=== PATIENT | male | born 1965 | race Two or more races ===

== ENCOUNTER 2016-05-16 20:52 | Emergency (ER) | payer MEDICAID ==
[~2016-05-16] VITALS: Ht 157.5 cm; Wt 108.9 kg
[~2016-05-16 20:52] MED LIST: ALPRAZOLAM0.25 MG ORAL; ATIVAN1 MG ORAL; FISH OIL CAP1000 MG ORAL; FOLIC ACID1 MG ORAL; IBUPROFEN600 MG ORAL; NEURONTIN300 MG ORAL; NKM; POTASSIUM CHLO20 ME3 PO; PROMETHAZINE-C118 M1 ORAL; PROTONIX40 MG ORAL; TYLENOL650 MG/20. ORAL; VITAMIN B-1100 MG ORAL; ZETIA10 MG ORAL
[2016-05-16] MEDS ORDERED: ATIVAN0.5 MG ORAL (21:52)
[2016-05-16 21:57] VITALS: BP 143/89
[2016-05-16 21:58] VITALS: BP 160/93
[2016-05-16] MEDS ORDERED: LORazepam 0.5mg tab ORAL ONE (22:00)
--- NOTE | 2016-05-16 23:07 | Emergency Room Report ---
History of Present Illness General Chief Complaint: General Complaint Source: Patient Present Illness HPI 51 YOM presents with feeling like episode at home while eating dinner of "wall is closing in, I'm going to , feeling very scared." Has happened before. Has not seen psychiatry. Denies associated fever/chills, chest pain, SOB, headache, dizziness, abd pain, urinary complaints. Per EMR, patient has history of multiple visits of anxiety to this ED. Per EMR , symptoms of chest pain, dizziness, headache have occurred with episodes of anxiety. He denies drug use, ETOH abuse. Denies any PMHx or other medications. Doesnt have anything at home for anxiety. Denies being stressed about specific things. Allergies: Coded Allergies: No Known Allergies (Verified , 04/22/08) Patient History Past Medical History: other - anxiety Past Surgical History: none Pertinent Family History: none Social History: Denies: alcohol use, drug use, smoking Immunizations: UTD Reviewed Nursing Documentation: PMH: Agreed, PSxH: Agreed Nursing Documentation-PMH Past Medical History: No Stated History Hx Cardiac Problems: No Hx Diabetes: No Hx Gastrointestinal Problems: No Hx Neurological Problems: No Review of Systems All Other Systems: negative except mentioned in HPI Physical Exam Vital Signs Date Time Temp Pulse Resp B/P Pulse Ox O2 Delivery O2 Flow Rate FiO2 05/16/16 21:24 98.1 101 16 160/93 100 Room Air Sp02 EP Interpretation: reviewed, normal General Appearance: normal inspection, well appearing, no apparent distress, alert, GCS 15, non-toxic Head: normocephalic, atraumatic Eyes: bilateral eye EOMI, bilateral eye PERRL ENT: normal ENT inspection, hearing grossly normal, normal voice Neck: normal inspection, full range of motion, supple, no bony tend Respiratory: normal inspection, lungs clear, normal breath sounds, no respiratory distress, no retraction, no wheezing Cardiovascular #1: regular rate, rhythm, no edema Gastrointestinal: normal inspection, normal bowel sounds, non tender, soft, no guarding, no hernia Genitourinary: no CVA tenderness Musculoskeletal: normal inspection, back normal, normal range of motion, Osmany' s Sign negative Neurologic: normal inspection, alert, oriented x3, responsive, singer back tender III-XII nml as tested, speech normal Psychiatric: normal inspection, judgement/insight normal, memory normal, mood/ affect normal, no suicidal/homicidal ideation, no delusions, anxious Skin: normal inspection, normal color, no rash Medical Decision Making Diagnostic Impression: Primary Impression: Panic attack ER Course 51 YOM with likely panic attack. VSS. Afebrile. Feels much better since leaving the house. Mildly anxious now. No SI, HI, AVH PO ativan given with improvement in symptoms Patient has had negative workup in the past for chest pain assoc with anxiety, including in Jan 2016 Low suspicion for ACS or other bacterial/surgical cause of symptoms today Likely anxiety given HPI Rx ativan DC home Recommended Psych followup Last Vital Signs Date Time Temp Pulse Resp B/P Pulse Ox O2 Delivery O2 Flow Rate FiO2 05/16/16 21:58 98.1 16 160/93 100 Room Air 05/16/16 21:57 87 Status: improved Disposition: HOME, SELF-CARE Condition: Improved Scripts Lorazepam* (ATIVAN*) 0.5 Mg Tablet 0.5 MG ORAL ONCE for 7 Days, #10 TAB Prov: JENNIFER BELLO M.D. 05/16/16 Referrals: NOT CHOSEN IPA/,REFERRING (PCP) Patient Instructions: Panic Attacks, [id number] Additional Instructions: - Call tomorrow the mental health number on back of your insurance card for a psychiatry appointment - Take Ativan once per day as needed for panic attacks - Return to ER for worsening dizziness, chest pain, headache or other symptoms JENNIFER BELLO M.D. May 16, 2016 23:07
== END 2016-05-16 22:00 | disposition home or self-care (01) ==
LOC: EMR 21:57
DX: F41.0 Panic disorder [episodic paroxysmal anxiety] (principal); F41.9 Anxiety disorder, unspecified
CPT/HCPCS: 99283

== ENCOUNTER 2016-06-30 14:14 | Emergency (ER) | payer MEDICAID ==
[~2016-06-30] VITALS: Ht 154.9 cm; Wt 108.9 kg
[~2016-06-30 14:14] MED LIST changes: +ATIVAN0.5 MG ORAL
[2016-06-30 14:29] VITALS: BP 144/89
[2016-06-30] MEDS ORDERED: Meclizine 25mg tab ORAL STA (14:34)
--- NOTE | 2016-06-30 14:34 | Emergency Room Report ---
History of Present Illness General Chief Complaint: Dizziness Source: Patient Present Illness HPI 51YOM with 1 week of dizziness - worse with change of position - but no unsteadiness when walking, no falling to one side, no loss of balance. Assoc now with 3 days posterior headache. Denies assoc fever/chills, nausea/vomiting , neck pain/stiffness. Per EMR, multiple visits here for similar type of complaint - known diagnosis of generalized anxiety disorder by psychiatry on previous admission. +DM. Previous admission for DKA. not taking medication for DM currently. Allergies: Coded Allergies: No Known Allergies (Verified , 04/22/08) Patient History Past Medical History: DM, other - anxiety Past Surgical History: none Pertinent Family History: none Social History: Reports: alcohol use Immunizations: UTD Reviewed Nursing Documentation: PMH: Agreed, PSxH: Agreed Nursing Documentation-PMH Past Medical History: No History, Except For Hx Diabetes: No Hx Gastrointestinal Problems: No Hx Neurological Problems: No Review of Systems All Other Systems: negative except mentioned in HPI Physical Exam Vital Signs Date Time Temp Pulse Resp B/P Pulse Ox O2 Delivery O2 Flow Rate FiO2 06/30/16 14:20 98.2 75 16 144/89 100 Room Air Sp02 EP Interpretation: reviewed, abnormal General Appearance: normal inspection, well appearing, no apparent distress, alert, GCS 15, non-toxic Head: normocephalic, atraumatic Eyes: bilateral eye EOMI, bilateral eye PERRL ENT: normal ENT inspection, hearing grossly normal, normal voice Neck: normal inspection, full range of motion, supple, no bony tend Respiratory: normal inspection, lungs clear, normal breath sounds, no respiratory distress, no retraction, no wheezing Cardiovascular #1: regular rate, rhythm, no edema Gastrointestinal: normal inspection, normal bowel sounds, non tender, soft, no guarding, no hernia Genitourinary: no CVA tenderness Musculoskeletal: normal inspection, back normal, normal range of motion, Osmany' s Sign negative Neurologic: normal inspection, alert, oriented x3, responsive, churn tender III-XII nml as tested, motor strength/tone normal, speech normal Psychiatric: normal inspection, judgement/insight normal, mood/affect normal Skin: normal inspection Lymphatic: normal inspection Medical Decision Making Diagnostic Impression: Primary Impression: Dizziness ER Course Dizziness - Labs: No leuks. H&H stable. Mild CK elevation but no associated RUBI. No other significant metabolic abnormality - Unlikely ACS given duration of 1 week, no CAD risk factors, EKG is NSR, no ischemia. Troponin 0. No chest pain, SOB - CT head unchanged from previous. No mass, ICH. I doubt posterior CVA given no loss of balance, ataxia or other focal deficits - Possibly BPPV. Patient does NOT have a PMD nor has seen an ENT. He improved on meclizine and IVF here. Will Rx Meclizine with recommended ENT referral - I am a little concern for benzo-seeking behavior. I did check on [facility] and 3x rx for benzos, all from here, including me from previous visit. Will NOT DC with benzos this time EKG Diagnostic Results Rate: normal, other - normal QTc Rhythm: NSR ST Segments: no acute changes ASA given to the pt in ED: No Rhythm Strip Diag. Results EP Interpretation: yes Rate: 77 Rhythm: NSR, no PVC's, no ectopy Last Vital Signs Date Time Temp Pulse Resp B/P Pulse Ox O2 Delivery O2 Flow Rate FiO2 06/30/16 14:29 98.2 16 144/89 100 Room Air 06/30/16 14:20 75 Disposition: HOME, SELF-CARE JENNIFER BELLO M.D. Jun 30, 2016 14:34
[2016-06-30] MEDS ORDERED: LR 1000ml 1,000 ML IV SCH (14:45)
[2016-06-30 14:58] LABS: BASOPHILS % (AUTO) 0.9 % (0.0-2.0); LYMPHOCYTES % (AUTO) 25.8 % (20.0-45.0); MEAN CORPUSCULAR HEMOGLOBIN 28.3 PG (27.0-31.0); MEAN CORPUSCULAR HGB CONC 33.2 G/DL (32.0-36.0); MEAN CORPUSCULAR VOLUME 85 FL (80-99); MEAN PLATELET VOLUME 7.9 FL (6.5-10.1); MONOCYTES % (AUTO) 8.1 % (1.0-10.0); NEUTROPHILS % (AUTO) 64.2 % (45.0-75.0); PLATELET COUNT 189 K/UL (150-450); RED CELL DISTRIBUTION WIDTH 14.9 % (11.6-14.8); WHITE BLOOD COUNT 6.7 K/UL (4.8-10.8)
[2016-06-30 15:15] LABS: TROPONIN I < 0.30 ng/mL (<=0.30)
[2016-06-30 15:18] LABS: ALANINE AMINOTRANSFERASE 21 U/L (3-41); ALBUMIN/GLOBULIN RATIO 1.4 (1.0-2.7); ANION GAP 16 (5-15); ASPARTATE AMINO TRANSFERASE 19 U/L (5-40); CARBON DIOXIDE 24 mEQ/L (20-30); CHLORIDE 96 mEQ/L (98-107); CREATININE 0.8 mg/dL (0.7-1.2); GLOMERULAR FILTRATION RATE > 60 mL/min (>60); HEMOLYSIS 8; POTASSIUM 3.3 mEQ/L (3.4-4.9); SODIUM 136 mEQ/L (135-145); TOTAL PROTEIN 7.2 g/dL (6.6-8.7)
[2016-06-30 15:28] LABS: CKMB 10.7 ng/mL (< 6.7)
[2016-06-30] MEDS ORDERED: MECLIZINE HCL25 MG ORAL (15:51)
[2016-06-30 15:52] VITALS: BP 141/68
[2016-06-30] MEDS ORDERED: Ketorolac 30mg Inj IV ONE (16:00)
[2016-06-30 16:38] LABS: APPEARANCE,URINE CLEAR; KETONES,URINE NEGATIVE (NEGATIVE); LEUKOCYTE ESTERASE ,URINE NEGATIVE (NEGATIVE); NITRITE,URINE NEGATIVE (NEGATIVE); PH,URINE 7 (4.5-8.0); PROTEIN,URINE NEGATIVE (NEGATIVE); UROBILINOGEN,URINE NORMAL MG/DL (0.0-1.0)
--- NOTE | 2016-07-01 10:28 | Diagnostic Imaging Report ---
Indication: Dyspnea Technique: XRAY CHEST 1 V Comparison: 02/11/16 Findings: Cardiomediastinal silhouette is within normal limits. There are subtle increased interstitial markings of the right midlung. There is no consolidation or pleural effusion. Degenerative changes of the spine are noted. Impression: Subtle increased interstitial markings of the right midlung. Findings are acute indeterminate and clinical correlation/followup recommended.
--- NOTE | 2016-07-01 10:30 | Diagnostic Imaging Report ---
Indication: Vertigo and dizziness Technique: Continuous helical CT scanning of the head was performed utilizing automated exposure control without intravenous contrast material. Axial and coronal reconstructions were obtained. Comparison: 11/20/15 CT dose: Total DLP 1446 mGycm; CTDI vol 70.4 mGy Findings: There is no acute intracranial hemorrhage, mass effect or cortical edema. The ventricles, cisterns and sulci are within normal limits. The posterior fossa and fourth ventricle are unremarkable. Sellar and suprasellar regions are grossly unremarkable. There is complete opacification of the left maxillary sinus. Moderate left ethmoid opacification is also noted. No focal lesions of the bony calvarium or soft tissues of the scalp are seen. Impression: No evidence of acute intracranial hemorrhage, mass effect or cortical edema. MRI may be obtained for more sensitive evaluation as clinically indicated. Left ethmoid and maxillary sinus opacification. Sinusitis or polyposis not excluded. Clinical correlation recommended. The CT scanner at [facility] is accredited by the [employer] and the scans are performed using protocols designed to limit radiation exposure to as low as reasonably achievable to attain images of sufficient resolution adequate for diagnostic evaluation.
--- NOTE | 2016-07-04 16:16 | Cardiology Report ---
APPROVED REPORT EKG Measurement Heart [id number] Normal sinus rhythm Normal ECG
== END 2016-06-30 16:00 | disposition home or self-care (01) ==
LOC: EMR 14:56
DX: R42 Dizziness and giddiness (principal); R51 Headache; F41.1 Generalized anxiety disorder; E11.9 Type 2 diabetes mellitus without complications
CPT/HCPCS: 36415; 70450; 71010; 80053; 80300; 81003; 82550; 82553; 84484; 85025; 93005; 96374; 96375; 99284; J1885

== ENCOUNTER 2017-10-15 07:04 | Emergency (ER) | payer MEDICAID ==
[~2017-10-15] VITALS: Ht 157.5 cm; Wt 81.6 kg
[~2017-10-15 07:04] MED LIST changes: +MECLIZINE HCL25 MG ORAL
[2017-10-15 07:24] VITALS: BP 133/75
[2017-10-15] MEDS ORDERED: Meclizine 25mg tab ORAL PRN (08:00)
[2017-10-15] MEDS ORDERED: MECLIZINE HCL25 M1 ORAL (08:09)
--- NOTE | 2017-10-15 08:10 | Emergency Room Report ---
History of Present Illness General Chief Complaint: Generalized Weakness Source: Patient Present Illness HPI Yesterday this patient had positional dizziness, spontaneous/sudden onset, resolved with not moving/lying down/sitting. Improved overnight but recurring again today. He is ok while lying in the gurney but walking into dept. made it worse. There is no history of any head trauma, no fever, no headache, no visual complaint. He has had this once before but resolved and never saw a physician. He denies medical problems and no meds. No trauma, no fever, no shortness of breath, no travel history, no leg swelling, no chest pain, no diaphoresis, no exertional complaints, no nausea, no vomiting, no diarrhea, no abdominal pain. Tolerating po fine, normal urinary output, normal bm. No syncope, LOC, lightheadedness, headache. No recent surgery. CRF: not known to have htn, lipids , no family history, no dm, no tobacco. Allergies: Coded Allergies: No Known Allergies (Verified , 04/22/08) Nursing Documentation-[facility] Past Medical History: No Stated History Hx Diabetes: No Hx Gastrointestinal Problems: No Hx Neurological Problems: No Review of Systems Constitutional: Denies: fever Eye: Denies: acuity changes Respiratory: Denies: cough, shortness of breath Cardiovascular: Denies: chest pain Gastrointestinal: Denies: nausea, vomiting Skin: Denies: rash Neurological: Denies: headache Physical Exam Vital Signs Date Time Temp Pulse Resp B/P (MAP) Pulse Ox O2 Delivery O2 Flow Rate FiO2 10/15/17 07:14 97.8 66 18 133/75 97 Room Air 97.9 General Appearance: well appearing, no apparent distress Head: normocephalic, atraumatic ENT: hearing grossly normal, normal voice Neck: full range of motion, supple Respiratory: no respiratory distress, speaking full sentences Musculoskeletal: no calf tenderness Neurologic: alert, normal gait, other - Barany reproduces symptoms Psychiatric: mood/affect normal Skin: no rash Medical Decision Making Diagnostic Impression: Primary Impression: Vertigo Last Vital Signs Date Time Temp Pulse Resp B/P (MAP) Pulse Ox O2 Delivery O2 Flow Rate FiO2 10/15/17 07:14 97.8 66 18 133/75 97 Room Air 97.9 Scripts Meclizine Hcl (MECLIZINE HCL) 25 Mg Tab.chew 25 MG ORAL THREE TIMES A DAY PRN for for dizziness, #30 TAB Prov: Jean-Claude Porter M.D. 10/15/17 Referrals: NOT CHOSEN IPA/MD,REFERRING (PCP) Patient Instructions: Benign Positional Vertigo Jean-Claude Porter M.D. Oct 15, 2017 08:09
[2017-10-15 08:25] VITALS: BP 133/75
== END 2017-10-15 08:25 | disposition home or self-care (01) ==
LOC: EMR 07:43
DX: R42 Dizziness and giddiness (principal)
CPT/HCPCS: 99283

== ENCOUNTER 2017-10-29 11:04 | Emergency (ER) | payer MEDICAID ==
[~2017-10-29] VITALS: Ht 154.9 cm; Wt 98.4 kg
[~2017-10-29 11:04] MED LIST changes: +MECLIZINE HCL25 M1 ORAL
[2017-10-29 11:16] VITALS: BP 145/86
--- NOTE | 2017-10-29 12:12 | Emergency Room Report ---
History of Present Illness General Chief Complaint: Dizziness Source: Patient Present Illness HPI Patient presents with reports of muscle cramping and aching he reports that he was working outside it was extremely hot he was doing lifting There was an episode where he had a second where he felt that his vision became blurry at this time back to normal Denies any chest pain or short of breath denies any neck pain He does report cramping in his legs and upper arms Denies any vomiting or diarrhea Allergies: Coded Allergies: No Known Allergies (Verified , 10/29/17) Patient History Past Medical History: see triage record Pertinent Family History: none Reviewed Nursing Documentation: PMH: Agreed; PSxH: Agreed Nursing Documentation-PMH Past Medical History: No History, Except For Hx Diabetes: No Hx Gastrointestinal Problems: No Hx Neurological Problems: No Review of Systems All Other Systems: negative except mentioned in HPI Physical Exam Vital Signs Date Time Temp Pulse Resp B/P (MAP) Pulse Ox O2 Delivery O2 Flow Rate FiO2 10/29/17 11:08 98.3 89 18 145/86 98 Room Air 98.2 Sp02 EP Interpretation: reviewed, normal General Appearance: well appearing, no apparent distress Head: normocephalic, atraumatic Eyes: bilateral eye PERRL, bilateral eye EOMI ENT: hearing grossly normal, normal pharynx, TMs + canals normal, uvula midline Neck: full range of motion, supple, no meningismus, no bony tend Respiratory: lungs clear, normal breath sounds, no rhonchi, no respiratory distress, no retraction, no accessory muscle use Cardiovascular #1: normal peripheral pulses, regular rate, rhythm, no edema, no gallop, no JVD, no murmur Gastrointestinal: normal bowel sounds, non tender, soft, no mass, no organomegaly, non-distended, no guarding, no hernia, no pulsatile mass, no rebound Genitourinary: no CVA tenderness Musculoskeletal: normal inspection Neurologic: oriented x3, responsive, 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, motor strength/ tone normal, sensory intact Psychiatric: mood/affect normal Skin: normal color, no rash, warm/dry, palpation normal Lymphatic: normal inspection, no adenopathy Medical Decision Making Diagnostic Impression: Primary Impression: Dizziness Additional Impression: Rhabdomyolysis ER Course Multiple differentials considered patient appears to have had significant dehydration IV hydration and started blood work also reveals mild early rhabdomyolysis Patient able to urinate taking oral hydration well And at this time is stable for close outpatient follow-up with rest and staying out of the heat Labs Test 10/29/17 11:40 White Blood Count 5.5 K/UL (4.8-10.8) Red Blood Count 5.66 M/UL (4.70-6.10) Hemoglobin 16.4 G/DL (14.2-18.0) Hematocrit 49.7 % (42.0-52.0) Mean Corpuscular Volume 88 FL (80-99) Mean Corpuscular Hemoglobin 29.0 PG (27.0-31.0) Mean Corpuscular Hemoglobin Concent 33.1 G/DL (32.0-36.0) Red Cell Distribution Width 12.3 % (11.6-14.8) Platelet Count 194 K/UL (150-450) Mean Platelet Volume 8.0 FL (6.5-10.1) Neutrophils (%) (Auto) 50.2 % (45.0-75.0) Lymphocytes (%) (Auto) 37.0 % (20.0-45.0) Monocytes (%) (Auto) 9.7 % (1.0-10.0) Eosinophils (%) (Auto) 1.3 % (0.0-3.0) Basophils (%) (Auto) 1.8 % (0.0-2.0) Sodium Level 138 MMOL/L (136-145) Potassium Level 3.7 MMOL/L (3.5-5.1) Chloride Level 101 MMOL/L (98-107) Carbon Dioxide Level 23 MMOL/L (21-32) Anion Gap 14 mmol/L (5-15) Blood Urea Nitrogen 21 mg/dL (7-18) Creatinine 1.1 MG/DL (0.55-1.30) Estimat Glomerular Filtration Rate > 60 mL/min (>60) Glucose Level 119 MG/DL (74-106) Calcium Level 9.3 MG/DL (8.5-10.1) Total Bilirubin 0.5 MG/DL (0.2-1.0) Aspartate Amino Transf (AST/SGOT) 43 U/L (15-37) Alanine Aminotransferase (ALT/SGPT) 57 U/L (12-78) Alkaline Phosphatase 142 U/L (46-116) Total Creatine Kinase 1142 U/L (26-308) Creatine Kinase MB 28.9 NG/ML (0.0-3.6) Creatine Kinase MB Relative Index 2.5 Total Protein 8.7 G/DL (6.4-8.2) Albumin 4.5 G/DL (3.4-5.0) Globulin 4.2 g/dL Albumin/Globulin Ratio 1.1 (1.0-2.7) Last Vital Signs Date Time Temp Pulse Resp B/P (MAP) Pulse Ox O2 Delivery O2 Flow Rate FiO2 10/29/17 11:16 98.2 89 18 145/86 98 Room Air 98.2 Status: improved Disposition: HOME, SELF-CARE Condition: Improved Referrals: NOT CHOSEN IPA/MD,REFERRING (PCP) Additional Instructions: Patient is provided with the discharge instructions notified to follow up with primary doctor in the next 2-3 days otherwise return to the er with any worsening symptoms. Please note that this report is being documented using DRAGON technology. This can lead to erroneous entry secondary to incorrect interpretation by the dictating instrument. Karen Jj DO Oct 29, 2017 12:12
[2017-10-29 12:32] LABS: ANION GAP 14 mmol/L (5-15); BLOOD UREA NITROGEN 21 mg/dL (7-18); CALCIUM 9.3 MG/DL (8.5-10.1); CARBON DIOXIDE 23 MMOL/L (21-32); CHLORIDE 101 MMOL/L (98-107); CREATININE 1.1 MG/DL (0.55-1.30); POTASSIUM 3.7 MMOL/L (3.5-5.1); SODIUM 138 MMOL/L (136-145)
[2017-10-29 12:35] LABS: BASOPHILS % (AUTO) 1.8 % (0.0-2.0); EOSINOPHILS % (AUTO) 1.3 % (0.0-3.0); HEMATOCRIT 49.7 % (42.0-52.0); HEMOGLOBIN 16.4 G/DL (14.2-18.0); MEAN CORPUSCULAR VOLUME 88 FL (80-99); MONOCYTES % (AUTO) 9.7 % (1.0-10.0); NEUTROPHILS % (AUTO) 50.2 % (45.0-75.0); PLATELET COUNT 194 K/UL (150-450); RED BLOOD COUNT 5.66 M/UL (4.70-6.10); RED CELL DISTRIBUTION WIDTH 12.3 % (11.6-14.8); WHITE BLOOD COUNT 5.5 K/UL (4.8-10.8)
[2017-10-29 12:45] LABS: ALANINE AMINOTRANSFERASE 57 U/L (12-78); ALBUMIN 4.5 G/DL (3.4-5.0); ALBUMIN/GLOBULIN RATIO 1.1 (1.0-2.7); ALKALINE PHOSPHATASE 142 U/L (46-116); ASPARTATE AMINO TRANSFERASE 43 U/L (15-37); BILIRUBIN,TOTAL 0.5 MG/DL (0.2-1.0); CKMB 28.9 NG/ML (0.0-3.6); CREATINE KINASE 1142 U/L (26-308)
[2017-10-29 13:13] VITALS: BP 134/80
== END 2017-10-29 13:16 | disposition home or self-care (01) ==
LOC: EMR 11:35
DX: R42 Dizziness and giddiness (principal); M62.82 Rhabdomyolysis
CPT/HCPCS: 36415; 80053; 82550; 82553; 85025; 99283

== ENCOUNTER 2018-07-15 13:02 | Emergency (ER) | payer MEDICAID ==
[~2018-07-15] VITALS: Ht 157.5 cm; Wt 72.6 kg
[2018-07-15 13:18] VITALS: BP 155/89
--- NOTE | 2018-07-15 13:18 | NUR ---
ED Nurse Note: AMBULATED IN TO ER DUE TO DIZZINESS WITH HEAD MOVEMENT X1 MONTH. A/OX4. NO S/S OF DISTRESS. NAUSEA BUT DENIES ANY VOMITTING EPISODES.
[2018-07-15] MEDS ORDERED: Metoclopramide 10mg/2ml Inj IVP ONE (13:30)
[2018-07-15] MEDS ORDERED: Meclizine 25mg tab ORAL ONE (13:30)
[2018-07-15] MEDS ORDERED: MECLIZINE HCL25 M1 ORAL (14:07)
[2018-07-15 14:18] VITALS: BP 127/73
--- NOTE | 2018-07-15 14:19 | NUR ---
ED Nurse Note: Pt cleared by health care Provider for discharge. DC instructions/prescription was given and explained to pt and verbalized understanding of teachings. All medical deviecs such as ID band AND IV removed. Pt is AAO x4, ambulatory and left with all personal belongings. DENIES ANY PAIN
--- NOTE | 2018-07-15 14:35 | Emergency Room Report ---
History of Present Illness General Chief Complaint: Dizziness Source: Patient Present Illness HPI 53-year-old male presents ED for evaluation. States he's been experiencing dizziness on and off for the last month. Describes room spinning sensation worse with sudden head movement. Denies photophobia or blurry vision. Denies nausea or vomiting. Denies headache. Denies any fall. States he's been here he received for similar presentation. No other aggravating relieving factors. Denies any other associated symptoms Allergies: Coded Allergies: No Known Allergies (Verified , 10/29/17) Patient History Past Medical History: none Past Surgical History: none Pertinent Family History: none Social History: Denies: smoking, alcohol use, drug use Immunizations: UTD Reviewed Nursing Documentation: PMH: Agreed; PSxH: Agreed Nursing Documentation-PMH Past Medical History: No Stated History Hx Diabetes: No Hx Gastrointestinal Problems: No Hx Neurological Problems: No Review of Systems All Other Systems: negative except mentioned in HPI Physical Exam Vital Signs Date Time Temp Pulse Resp B/P (MAP) Pulse Ox O2 Delivery O2 Flow Rate FiO2 07/15/18 13:10 99.0 68 18 154/85 98 Room Air Sp02 EP Interpretation: reviewed, normal General Appearance: no apparent distress, alert, GCS 15, non-toxic Head: normocephalic, atraumatic Eyes: bilateral eye normal inspection, bilateral eye PERRL ENT: hearing grossly normal, normal pharynx, no angioedema, normal voice Neck: full range of motion, supple, supple/symm/no masses Respiratory: chest non-tender, lungs clear, normal breath sounds, speaking full sentences Cardiovascular #1: regular rate, rhythm, no edema Cardiovascular #2: 2+ carotid (R), 2+ carotid (L), 2+ radial (R), 2+ radial (L) , 2+ dorsalis pedis (R), 2+ dorsalis pedis (L) Gastrointestinal: normal bowel sounds, non tender, soft, non-distended, no guarding, no rebound Rectal: deferred Genitourinary: normal inspection, no CVA tenderness Musculoskeletal: back normal, gait/station normal, normal range of motion, non- tender Neurologic: alert, oriented x3, responsive, 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 as tested, motor strength/tone normal, sensory intact, cerebellar normal, normal gait, speech normal Psychiatric: judgement/insight normal, memory normal, mood/affect normal, no suicidal/homicidal ideation Reflexes: 3+ bicep (R), 3+ bicep (L), 3+ tricep (R), 3+ tricep (L), 3+ knee (R) , 3+ knee (L) Skin: normal color, no rash, warm/dry, well hydrated Lymphatic: no adenopathy Medical Decision Making Diagnostic Impression: Primary Impression: Vertigo ER Course Hospital Course 53-year-old male presents ED complaining of dizziness x1 month Differential diagnoses include: MT/unstable angina, SVT, A. fib, V. tach, CVA/ TIA, intracranial mass, vertigo Clinical course Patient placed on stretcher. 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 After initial history, physical exam reveals male in no acute distress. Cranial nerves II through XII intact. No nuchal rigidity. No ataxia. Walking with stable gait. I reviewed EMR. Patient has been here previously for vertigo. Has had workups which have been unremarkable. Has been effectively treated with meclizine. Given negative exam and prior history for see no reason to repeat imaging or lab work. EKGnormal sinus rhythm no acute ischemic changes interpreted by me Given IV fluids, meclizine, IV Reglan. On reassessment symptoms improved. Safe for discharge close outpatient follow-up. Does not have a PMD. We'll provide referrals I. I feel this is a highly complex case requiring extensive working including EKG/Rhythm strip, Xray/CT/US, Blood/urine lab work, repeat exams while in ED, and administration of strong opiates/narcotics for pain control, admission to hospital or close patient follow up. Diagnosis - vertigo stable and discharged to home with prescription for meclizine. Followup with PMD. Return to ED if symptoms recur or worsen EKG Diagnostic Results Rate: normal Rhythm: NSR ST Segments: no acute changes ASA given to the pt in ED: No Rhythm Strip Diag. Results EP Interpretation: yes Rhythm: NSR, no PVC's, no ectopy Last Vital Signs Date Time Temp Pulse Resp B/P (MAP) Pulse Ox O2 Delivery O2 Flow Rate FiO2 07/15/18 14:18 98.9 63 18 127/73 96 Room Air Status: improved Disposition: HOME, SELF-CARE Condition: Stable Scripts Meclizine Hcl (MECLIZINE HCL) 25 Mg Tab.chew 25 MG ORAL THREE TIMES A DAY PRN for for dizziness, #30 TAB Prov: Nic Gifford MD 07/15/18 Referrals: NOT CHOSEN IPA/,REFERRING (PCP) [facility] Patient Instructions: Vertigo Nic Gifford MD Jul 15, 2018 14:35
--- NOTE | 2018-07-18 15:45 | Cardiology Report ---
APPROVED REPORT EKG Measurement Heart [id number] Normal sinus rhythm Normal ECG
== END 2018-07-15 14:20 | disposition home or self-care (01) ==
LOC: EMR 13:20
DX: R42 Dizziness and giddiness (principal)
CPT/HCPCS: 93005; 96374; 99284; J2765; J7040

== ENCOUNTER 2018-10-05 14:54 | Emergency (ER) | payer MEDICAID ==
[~2018-10-05] VITALS: Ht 167.6 cm; Wt 81.6 kg
[2018-10-05] MEDS ORDERED: Lidocaine 2% Visc 15ml soln ORAL ONE (15:30)
[2018-10-05] MEDS ORDERED: Mylanta II UD 30ml ORAL ONE (15:30)
--- NOTE | 2018-10-05 15:35 | Emergency Room Report ---
History of Present Illness General Chief Complaint: Abdominal Pain Source: Patient Present Illness HPI Patient presents driving himself in with chest and epigastric pain after drinking beer last night. He vomited last night it was purely the beer without any blood or coffee grounds. He denies any blood or tarry bowel movements. He has been sober for many months but decided to drink last night. He rates the pain 8-9/10 and burning and constant. The nausea is somewhat better. He denies headache. He denies diabetes, hypertension or smoking. He denies cardiac risk factors. No fevers, chills, palpitations, dysuria, shortness of breath, depression, visual changes, headache. Review of old records reveals that he does have diabetes and high cholesterol. In addition to that he has been seen in the past for panic attacks and alcohol related issues. Allergies: Coded Allergies: No Known Allergies (Verified , 10/29/17) Patient History Past Medical History: see triage record, old chart reviewed Social History: Reports: alcohol use; Denies: smoking, drug use Social History Narrative [place] Reviewed Nursing Documentation: PMH: Agreed; PSxH: Agreed Nursing Documentation-PMH Hx Diabetes: No Hx Gastrointestinal Problems: No Hx Neurological Problems: No Review of Systems All Other Systems: negative except mentioned in HPI Physical Exam Vital Signs Date Time Temp Pulse Resp B/P (MAP) Pulse Ox O2 Delivery O2 Flow Rate FiO2 10/05/18 15:10 98.6 99 16 140/87 (104) 96 Room Air Sp02 EP Interpretation: reviewed, normal General Appearance: well appearing, no apparent distress, GCS 15 Head: normocephalic Eyes: bilateral eye normal inspection, bilateral eye PERRL, bilateral eye Scleral Injection ENT: moist mucus membranes Neck: supple Respiratory: lungs clear, normal breath sounds Cardiovascular #1: regular rate, rhythm, edema Cardiovascular #2: 2+ radial (R) Gastrointestinal: normal inspection, normal bowel sounds, no mass, non- distended, no guarding, no rebound, tenderness - Epigastric Genitourinary: no CVA tenderness Musculoskeletal: back normal, gait/station normal, normal range of motion, no calf tenderness, Osmany's Sign negative Neurologic: alert, oriented x3, speech normal, grossly normal Psychiatric: mood/affect normal Skin: no rash Medical Decision Making Diagnostic Impression: Primary Impression: Chest pain Qualified Codes: R07.9 - Chest pain, unspecified Additional Impressions: Gastritis Qualified Codes: K29.20 - Alcoholic gastritis without bleeding Alcohol abuse ER Course The patient presents with chest pain and epigastric pain after drinking alcohol last night. Differential includes acute myocardial infarction, esophagitis, gastritis, pancreatitis amongst others. The patient will be evaluated with EKG , chest x-ray and labs. The patient will be treated with IV hydration, Pepcid, Mylanta and viscous lidocaine. The patient is placed on a security monitor. Review of old records reveals that he does have diabetes although he denied it initially. He has been seen here for alcohol abuse in the past. Patient at low risk for cardiac disease based on risk factors. EKG without injury. CXR clear. Labs remarkable for minimally elevated glucose , alk phos and CPK. Improved with treatment. Discussed the need for follow-up and outpatient observation. Patient was requesting something to help him sleep in his nerves. Vistaril given. Patient stable for outpatient observation and treatment. Laboratory Tests Test 10/05/18 15:35 10/05/18 15:50 White Blood Count 7.5 K/UL (4.8-10.8) Red Blood Count 5.25 M/UL (4.70-6.10) Hemoglobin 15.8 G/DL (14.2-18.0) Hematocrit 46.0 % (42.0-52.0) Mean Corpuscular Volume 88 FL (80-99) Mean Corpuscular Hemoglobin 30.0 PG (27.0-31.0) Mean Corpuscular Hemoglobin Concent 34.2 G/DL (32.0-36.0) Red Cell Distribution Width 11.9 % (11.6-14.8) Platelet Count 180 K/UL (150-450) Mean Platelet Volume 7.7 FL (6.5-10.1) Neutrophils (%) (Auto) 65.3 % (45.0-75.0) Lymphocytes (%) (Auto) 23.9 % (20.0-45.0) Monocytes (%) (Auto) 8.4 % (1.0-10.0) Eosinophils (%) (Auto) 0.4 % (0.0-3.0) Basophils (%) (Auto) 2.0 % (0.0-2.0) Prothrombin Time 10.6 SEC (9.30-11.50) Prothrombin Time INR 1.0 (0.9-1.1) PTT 25 SEC (23-33) Sodium Level 141 MMOL/L (136-145) Potassium Level 3.6 MMOL/L (3.5-5.1) Chloride Level 105 MMOL/L (98-107) Carbon Dioxide Level 27 MMOL/L (21-32) Anion Gap 10 mmol/L (5-15) Blood Urea Nitrogen 10 mg/dL (7-18) Creatinine 1.0 MG/DL (0.55-1.30) Estimate Glomerular Filtration Rate > 60 mL/min (>60) Glucose Level 157 MG/DL (74-106) H Calcium Level 8.8 MG/DL (8.5-10.1) Total Bilirubin 0.5 MG/DL (0.2-1.0) Aspartate Amino Transferase (AST) 26 U/L (15-37) Alanine Aminotransferase (ALT) 56 U/L (12-78) Alkaline Phosphatase 140 U/L (46-116) H Total Creatine Kinase 453 U/L (26-308) H Troponin I 0.000 ng/mL (0.000-0.056) Total Protein 7.9 G/DL (6.4-8.2) Albumin 4.0 G/DL (3.4-5.0) Globulin 3.9 g/dL Albumin/Globulin Ratio 1.0 (1.0-2.7) Lipase 116 U/L (73-393) Urine Color Yellow Urine Appearance Clear Urine pH 6 (4.5-8.0) Urine Specific [place] 1.020 (1.005-1.035) Urine Protein 2+ (NEGATIVE) H Urine Glucose (UA) 1+ (NEGATIVE) H Urine Ketones Negative (NEGATIVE) Urine Blood 1+ (NEGATIVE) H Urine Nitrite Negative (NEGATIVE) Urine Bilirubin Negative (NEGATIVE) Urine Urobilinogen Normal MG/DL (0.0-1.0) Urine Leukocyte Esterase 1+ (NEGATIVE) H Urine RBC 0-2 /HPF (0 - 0) H Urine WBC 0-2 /HPF (0 - 0) Urine Squamous Epithelial Cells None /LPF (NONE/OCC) Urine Bacteria Few /HPF (NONE) Urine Mucus Many /LPF (NONE/OCC) H EKG Diagnostic Results Rate: normal Rhythm: NSR ST Segments: no acute changes Rhythm Strip Diag. Results EP Interpretation: yes Rhythm: NSR, no PVC's, no ectopy Chest X-Ray Diagnostic Results Chest X-Ray Diagnostic Results : Chest X-Ray Ordered: Yes # of Views/Limited/Complete: 1 View Indication: Chest Pain EP Interpretation: Yes Interpretation: no consolidation, no effusion, no pneumothorax Impression: No acute disease Electronically Signed by: Electronically signed by Mark Castanon MD Last Vital Signs Date Time Temp Pulse Resp B/P (MAP) Pulse Ox O2 Delivery O2 Flow Rate FiO2 10/05/18 17:04 98.6 82 19 145/84 98 Room Air Status: improved Disposition: HOME, SELF-CARE Condition: Improved Scripts Hydroxyzine Pamoate (VISTARIL) 25 Mg Capsule 25 MG PO Q8HR PRN for anxiety, #6 CAP Prov: Mark Castanon MD 10/05/18 Famotidine (PEPCID AC) 20 Mg Tablet 20 MG PO DAILY, #20 TAB Prov: Mark Castanon MD 10/05/18 Mark Castanon MD Oct 05, 2018 15:35
--- NOTE | 2018-10-05 15:47 | NUR ---
ED Nurse Note: Pt came in from home due to epigastric pain and nausea since last night after drinking 8-10 beers. Pt hasnt been drinking x 2 years. Pain 9/10 mago. Bowel sounds present in all quadrants, soft to touch. Last bowel movement was this morning, normal. AOx4, VSS mago. Will cont to monitor.
[2018-10-05 15:51] VITALS: BP 146/76
[2018-10-05 15:56] LABS: ANION GAP 10 mmol/L (5-15); BLOOD UREA NITROGEN 10 mg/dL (7-18); CALCIUM 8.8 MG/DL (8.5-10.1); CARBON DIOXIDE 27 MMOL/L (21-32); CHLORIDE 105 MMOL/L (98-107); POTASSIUM 3.6 MMOL/L (3.5-5.1); SODIUM 141 MMOL/L (136-145)
[2018-10-05 15:58] LABS: EOSINOPHILS % (AUTO) 0.4 % (0.0-3.0); HEMOGLOBIN 15.8 G/DL (14.2-18.0); LYMPHOCYTES % (AUTO) 23.9 % (20.0-45.0); MEAN CORPUSCULAR VOLUME 88 FL (80-99); MONOCYTES % (AUTO) 8.4 % (1.0-10.0); NEUTROPHILS % (AUTO) 65.3 % (45.0-75.0); PLATELET COUNT 180 K/UL (150-450); RED BLOOD COUNT 5.25 M/UL (4.70-6.10); RED CELL DISTRIBUTION WIDTH 11.9 % (11.6-14.8); WHITE BLOOD COUNT 7.5 K/UL (4.8-10.8)
[2018-10-05 16:02] LABS: ALANINE AMINOTRANSFERASE 56 U/L (12-78); ALKALINE PHOSPHATASE 140 U/L (46-116); ASPARTATE AMINO TRANSFERASE 26 U/L (15-37); BILIRUBIN,TOTAL 0.5 MG/DL (0.2-1.0); CREATINE KINASE 453 U/L (26-308)
[2018-10-05 16:07] LABS: APPEARANCE,URINE CLEAR; BILIRUBIN, URINE NEGATIVE (NEGATIVE); GLUCOSE, URINE (UA) 1+ (NEGATIVE); KETONES,URINE NEGATIVE (NEGATIVE); LEUKOCYTE ESTERASE ,URINE 1+ (NEGATIVE); NITRITE,URINE NEGATIVE (NEGATIVE); PH,URINE 6 (4.5-8.0); PROTEIN,URINE 2+ (NEGATIVE); UROBILINOGEN,URINE NORMAL MG/DL (0.0-1.0)
[2018-10-05 16:09] LABS: COLOR,URINE YELLOW
[2018-10-05] MEDS ORDERED: PEPCID AC20 M2 PO (16:54)
[2018-10-05] MEDS ORDERED: VISTARIL25 M1 PO (16:54)
[2018-10-05 17:04] VITALS: BP 145/84
--- NOTE | 2018-10-05 17:04 | NUR ---
ER DISCHARGE NOTE: Patient is cleared to be discharged per ERMD, pt is aox4, on room air, with stable vital signs. pt was given dc and prescription instructions, pt was able to verbalize understanding, pt id band and iv site removed without complications. pt is able to ambulate with steady gait. pt took all belongings.
--- NOTE | 2018-10-06 12:11 | Diagnostic Imaging Report ---
Indication: Chest pain Technique: One view of the chest Comparison: 06/30/2016 Findings: The heart is enlarged. This is a new finding. Lungs and pleural spaces are clear. Impression: Cardiomegaly. No acute process
== END 2018-10-05 17:04 | disposition home or self-care (01) ==
LOC: EMR 15:40
DX: R07.9 Chest pain, unspecified (principal); K29.20 Alcoholic gastritis without bleeding; F10.10 Alcohol abuse, uncomplicated; E11.9 Type 2 diabetes mellitus without complications; E78.00 Pure hypercholesterolemia, unspecified
CPT/HCPCS: 36415; 71045; 80053; 81003; 82550; 83690; 84484; 85025; 85610; 85730; 93005; 96361; 96374; 96375; 99284; J2405; S0028

== ENCOUNTER 2018-12-08 20:20 | Emergency (ER) | payer MEDICAID ==
[~2018-12-08] VITALS: Ht 157.5 cm; Wt 106.6 kg
[~2018-12-08 20:20] MED LIST changes: +PEPCID AC20 M2 PO; +VISTARIL25 M1 PO
[2018-12-08 21:12] VITALS: BP 149/90
--- NOTE | 2018-12-08 21:37 | Emergency Room Report ---
History of Present Illness General Chief Complaint: Pain Source: Patient Present Illness HPI Patient presents with right-sided headache since yesterday. Also when he turns his head suddenly he gets dizzy. He also complains about nausea. There is no change in vision, fever, sore throat, chest pain, palpitations or rash. The pain radiates somewhat towards his neck. He is tried Tylenol and has helped minimally. The patient's been seen for anxiety in the past. He states that he does not feel this is the major problem at this time. The patient has been seen here for vertigo in the past. Risk factors for cardiac disease: Diabetes The patient is been admitted in the past for diabetic ketoacidosis. He denies polyuria or polydipsia at this time. He also has a history of thiamine deficiency neuropathy. He also abused alcohol in the past but denies any recently. 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 Nursing Documentation: PMH: Agreed; PSxH: Agreed Nursing Documentation-PMH Past Medical History: No Stated History Hx Diabetes: No Hx Gastrointestinal Problems: No Hx Neurological Problems: No Review of Systems All Other Systems: negative except mentioned in HPI Physical Exam Vital Signs Date Time Temp Pulse Resp B/P (MAP) Pulse Ox O2 Delivery O2 Flow Rate FiO2 12/08/18 20:37 98.1 65 16 149/90 (109) 97 Room Air Sp02 EP Interpretation: reviewed, normal General Appearance: well appearing, no apparent distress, GCS 15 Head: normocephalic Eyes: bilateral eye normal inspection, bilateral eye PERRL, bilateral eye EOMI ENT: normal pharynx, normal voice, moist mucus membranes Neck: full range of motion, supple Respiratory: chest non-tender, lungs clear, normal breath sounds Cardiovascular #1: regular rate, rhythm Cardiovascular #2: 2+ radial (L) Gastrointestinal: normal inspection, non tender, non-distended Genitourinary: no CVA tenderness Musculoskeletal: gait/station normal, normal range of motion Neurologic: alert, oriented x3, grossly normal Psychiatric: mood/affect normal Skin: normal color, no rash Medical Decision Making Diagnostic Impression: Primary Impression: Headache Qualified Codes: R51 - Headache Additional Impression: Vertigo ER Course Patient presents with 2 days of headache with nausea. Differential includes migraine, tension headache. There are no red flag symptoms. There is no evidence of meningitis at this time. No laboratory or imaging is indicated at this time. The patient will be given a dose of Reglan, Benadryl and Motrin. He elected oral medications as opposed to shots at this time. He will be re- evaluated. Patient symptom-free after medication. Discussed findings with patient and . Also discussed treatment plan. He needs to find a private physician. Patient stable for outpatient observation and treatment. Last Vital Signs Date Time Temp Pulse Resp B/P (MAP) Pulse Ox O2 Delivery O2 Flow Rate FiO2 12/08/18 23:44 97.8 68 18 129/68 100 Room Air Status: improved Disposition: HOME, SELF-CARE Condition: Improved Scripts Acetaminophen (Tylenol) 325 Mg Tablet 650 MG ORAL Q6H PRN for Prn Pain/Headache/Temp > 101, #20 TAB 0 Refills Prov: Mark Castanon MD 12/08/18 Ondansetron Odt* (ZOFRAN ODT*) 4 Mg Tab.rapdis 4 MG BC EVERY 8 HOURS, #10 TAB 0 Refills Prov: Mark Castanon MD 12/08/18 Meclizine Hcl* (MECLIZINE*) 25 Mg Tablet 25 MG ORAL THREE TIMES A DAY PRN for dizziness, #10 TAB Prov: Mark Castanon MD 12/08/18 Mark Castanon MD Dec 08, 2018 21:37
[2018-12-08] MEDS ORDERED: MECLIZINE HCL25 MG ORAL (23:34)
[2018-12-08] MEDS ORDERED: ONDANSETRON ODT4 MG BC (23:34)
[2018-12-08] MEDS ORDERED: TYLENOL325 MG ORAL (23:34)
[2018-12-08 23:44] VITALS: BP 129/68
== END 2018-12-09 00:10 | disposition home or self-care (01) ==
LOC: EMR 21:15
DX: R51 Headache (principal); R42 Dizziness and giddiness; E11.9 Type 2 diabetes mellitus without complications
CPT/HCPCS: 99282

== ENCOUNTER 2019-09-01 11:02 | Emergency (ER) | payer MEDICAID ==
[~2019-09-01] VITALS: Ht 167.6 cm; Wt 83.9 kg
[~2019-09-01 11:02] MED LIST changes: +ONDANSETRON ODT4 MG BC; +TYLENOL325 MG ORAL
[2019-09-01 12:00] VITALS: BP 145/97
--- NOTE | 2019-09-01 12:05 | NUR ---
ED Nurse Note: Patient walked in to ER due to alcohol intoxication. Stated can't sleep, has high BS, stomach ache. Per patient had last drink today at 1030. Patient presented with strong smell of alcohol, AAO x4, VSS at this time, stated has DM and was noncomplience with his medications. Patient's BS 232 at bed side.
[2019-09-01] MEDS ORDERED: ATIVAN1 MG ORAL (12:08)
[2019-09-01] MEDS ORDERED: METFORMIN HCL500 M1 ORAL (12:08)
[2019-09-01 12:17] VITALS: BP 145/97
--- NOTE | 2019-09-01 12:17 | NUR ---
ED Nurse Note: Pt cleared by health care Provider for discharge. DC instructions/prescription was given and explained to pt and verbalized understanding of teachings. All medical deviecs such as ID band removed. Pt is AAO x4, ambulatory and left with all personal belongings.
[2019-09-02] MEDS ORDERED: ATIVAN1 MG ORAL (03:43)
[2019-09-02] MEDS ORDERED: ONDANSETRON ODT4 MG BC (03:43)
[2019-09-02] MEDS ORDERED: FAMOTIDINE20 MG ORAL (03:43)
--- NOTE | 2019-09-02 16:37 | Emergency Room Report ---
History of Present Illness General Chief Complaint: Alcohol Intoxication Source: Patient Present Illness HPI 54-year-old male presents for alcohol intoxication. States that he has been drinking earlier today. States he feels anxious and cannot sleep. Denies any abdominal pain. Denies any nausea or vomiting. Denies drug use. No other aggravating relieving factors. Denies any other associated symptoms Allergies: Coded Allergies: No Known Allergies (Verified , 10/29/17) COVID-19 Screening Contact w/high risk pt: No Recent Travel to affected area: No Experienced COVID-19 symptoms?: No COVID-19 Testing performed TELEGRAPH INSPECTOR: No Patient History Past Medical History: psych hx Past Surgical History: none Pertinent Family History: none Social History: Reports: alcohol use; Denies: smoking, drug use Immunizations: UTD Reviewed Nursing Documentation: PMH: Agreed; PSxH: Agreed Nursing Documentation-PMH Hx Diabetes: No Hx Gastrointestinal Problems: No Hx Neurological Problems: No Review of Systems All Other Systems: negative except mentioned in HPI Physical Exam Vital Signs Date Time Temp Pulse Resp B/P (MAP) Pulse Ox O2 Delivery O2 Flow Rate FiO2 09/01/19 11:28 98.1 84 20 145/97 (113) 98 Room Air Sp02 EP Interpretation: reviewed, normal General Appearance: no apparent distress, alert, GCS 15, non-toxic Head: normocephalic, atraumatic Eyes: bilateral eye normal inspection, bilateral eye PERRL ENT: hearing grossly normal, normal pharynx, no angioedema, normal voice Neck: full range of motion, supple/symm/no masses Respiratory: chest non-tender, lungs clear, normal breath sounds, speaking full sentences Cardiovascular #1: regular rate, rhythm, no edema Cardiovascular #2: 2+ carotid (R), 2+ carotid (L), 2+ radial (R), 2+ radial (L) , 2+ dorsalis pedis (R), 2+ dorsalis pedis (L) Gastrointestinal: normal bowel sounds, non tender, soft, non-distended, no guarding, no rebound Rectal: deferred Genitourinary: normal inspection, no CVA tenderness Musculoskeletal: back normal, normal range of motion, gait/station normal, non- tender Neurologic: alert, motor strength/tone normal, oriented x3, sensory intact, responsive, speech normal Psychiatric: judgement/insight normal, memory normal, mood/affect normal, no suicidal/homicidal ideation Reflexes: 3+ bicep (R), 3+ bicep (L), 3+ tricep (R), 3+ tricep (L), 3+ knee (R) , 3+ knee (L) Lymphatic: no adenopathy Medical Decision Making Diagnostic Impression: Primary Impression: Hyperglycemia Additional Impression: Acute alcoholic intoxication Qualified Codes: F10.929 - Alcohol use, unspecified with intoxication, unspecified ER Course Hospital Course 54 yo M presents with ETOH. states he feels anxious Clinical course Patient placed on stretcher. Alert oriented x3. Appears anxious. No SI or HI. Vitals stable. Accu-Chek in the 200s. States he does not take any medications at this time. States he feels anxious and needs something to help him sleep. Has been prescribed Ativan in the past for anxiety. I will provide him a short course of medication. Also provide him with low-dose metformin for new onset diabetes. I will provide referrals. Safe for discharge for close outpatient follow-up Diagnosis - ETOH intoxication, hyperglycemia stable and discharged to home with Rx Metformin, Ativan. Followup with PMD. Return to ED if symptoms recur or worsen Last Vital Signs Date Time Temp Pulse Resp B/P (MAP) Pulse Ox O2 Delivery O2 Flow Rate FiO2 09/01/19 12:17 98.1 20 145/97 98 Room Air 09/01/19 12:00 84 Status: improved Disposition: HOME, SELF-CARE Condition: Stable Scripts Lorazepam* (ATIVAN*) 1 Mg Tablet 1 MG ORAL BEDTIME, #10 TAB Prov: Nic Gifford MD 09/01/19 Metformin Hcl* (METFORMIN HCL*) 500 Mg Tablet 500 MG ORAL DAILY, #10 TAB Prov: Nic Gifford MD 09/01/19 Referrals: NOT CHOSEN IPA/,REFERRING (PCP) Karine Lockwood [facility]. [facility] + [facility] ER - Peds ER - Patient Instructions: Alcohol Use Disorder Nic Gifford MD Sep 02, 2019 16:37
== END 2019-09-01 12:17 | disposition home or self-care (01) ==
LOC: EDSEX → EMR 12:05
DX: F10.129 Alcohol abuse with intoxication, unspecified (principal); R73.9 Hyperglycemia, unspecified
CPT/HCPCS: 99282

== ENCOUNTER 2019-09-02 03:25 | Emergency (ER) | payer MEDICAID ==
[~2019-09-02] VITALS: Ht 162.6 cm; Wt 113.4 kg
[~2019-09-02 03:25] MED LIST changes: +METFORMIN HCL500 M1 ORAL
--- NOTE | 2019-09-02 03:40 | NUR ---
ED Nurse Note: Pt walked into ED for c/o N/V due to alcohol intoxication since last night. Pt notes he drank two bottles of vodka for fun. Pt does not want to hurt himself. Pt is aaox4, no slurred speech and is ambulatory with steady gait. Pt is breathing normal and unlabored, no cardiac distress noted. Will cont. to monitor.
[2019-09-02] MEDS ORDERED: ONDANSETRON ODT4 MG BC (03:43)
[2019-09-02] MEDS ORDERED: FAMOTIDINE20 MG ORAL (03:43)
[2019-09-02] MEDS ORDERED: ATIVAN1 MG ORAL (03:43)
[2019-09-02] MEDS ORDERED: LORazepam 1mg tab ORAL ONE (03:45)
[2019-09-02] MEDS ORDERED: Thiamine 100mg tab ORAL ONE (03:45)
[2019-09-02 03:50] VITALS: BP_SYST 148; BP_SYST 155; BP_DIAS 95; BP_DIAS 96
--- NOTE | 2019-09-02 03:50 | NUR ---
ER DISCHARGE NOTE: Patient is cleared to be discharged per ERMD, pt is aox4, on room air, with stable vital signs. pt was given dc and prescription instructions, pt was able to verbalize understanding, pt id band removed. pt is able to ambulate with steady gait. pt took all belongings.
--- NOTE | 2019-09-02 04:17 | Emergency Room Report ---
History of Present Illness General Chief Complaint: Alcohol Intoxication Present Illness HPI Patient is a 54-year-old male who presents after increased difficulty with sleeping. Reports having some episodes of vomiting after drinking alcohol. Reports last drink approximately 5 PM today. Denies any hematemesis. Has not been having any bloody stools. Reports having been drinking heavily for several days. Patient had been intermittently drinking heavily in the past. Denies any suicidal thoughts. Allergies: Coded Allergies: No Known Allergies (Verified , 10/29/17) COVID-19 Screening Contact w/high risk pt: No Recent Travel to affected area: No Experienced COVID-19 symptoms?: No COVID-19 Testing performed DIRECTOR OF ONLINE MERCHANDISING: No Patient History Past Medical History: see triage record Reviewed Nursing Documentation: PMH: Agreed; PSxH: Agreed Nursing Documentation-PMH Hx Diabetes: No Hx Gastrointestinal Problems: No Hx Neurological Problems: No Review of Systems All Other Systems: negative except mentioned in HPI Physical Exam Vital Signs Date Time Temp Pulse Resp B/P (MAP) Pulse Ox O2 Delivery O2 Flow Rate FiO2 09/02/19 03:30 97.5 82 16 155/96 (115) 96 Room Air Sp02 EP Interpretation: reviewed, normal General Appearance: normal inspection, well appearing, no apparent distress, alert, GCS 15, non-toxic Head: atraumatic ENT: normal ENT inspection, hearing grossly normal, normal voice Neck: normal inspection, full range of motion, supple, no bony tend Respiratory: normal inspection, lungs clear, normal breath sounds, no respiratory distress, no retraction, no wheezing Cardiovascular #1: regular rate, rhythm, no edema Gastrointestinal: normal inspection, normal bowel sounds, non tender, soft, no guarding, no hernia Genitourinary: no CVA tenderness Musculoskeletal: normal inspection, back normal, normal range of motion Neurologic: alert, motor strength/tone normal, billet heater III-XII nml as tested, oriented x3, responsive, speech normal, normal inspection Psychiatric: normal inspection, judgement/insight normal, mood/affect normal Medical Decision Making Diagnostic Impression: Primary Impression: Alcohol abuse ER Course Patient presented for alcohol abuse. Differential diagnosis include was not limited to alcohol intoxication, alcohol withdrawal, gastritis among others. Patient has a benign exam and does not appear to require any imaging or laboratory testing at this time. Patient does not appear to be in any acute distress. Does not appear to require any laboratory testing at this time. He is given medications for symptomatic treatment. He was advised to discontinue alcohol use. He is advised to return if any worsening condition or other concerns. The patient is advised to follow up with primary care doctor in 1-2 days. Patient is advised to return if any worsening condition or if any changes in status that are concerning. This report is dictated with [employer] glue mill operator software which may occasionally lead to discrepancies related to use of this software. Last Vital Signs Date Time Temp Pulse Resp B/P (MAP) Pulse Ox O2 Delivery O2 Flow Rate FiO2 09/02/19 03:50 97.5 80 16 148/95 97 Room Air Status: improved Disposition: HOME, SELF-CARE Scripts Lorazepam* (ATIVAN*) 1 Mg Tablet 1 MG ORAL THREE TIMES A DAY, #14 TAB Prov: Kulwant Dunn MD 09/02/19 Famotidine* (Pepcid 20mg tablet*) 20 Mg Tablet 20 MG ORAL DAILY, #30 TAB 0 Refills Prov: Kulwant Dunn MD 09/02/19 Ondansetron Odt* (ZOFRAN ODT*) 4 Mg Tab.rapdis 4 MG BC EVERY 6 HOURS PRN for Nausea & Vomiting, #10 TAB 0 Refills Prov: Kulwant Dunn MD 09/02/19 Patient Instructions: Alcohol Intoxication Additional Instructions: Follow up with substance abuse treatment. Do not drink alcohol. Return if worse. Kulwant Dunn MD Sep 02, 2019 04:17
== END 2019-09-02 03:50 | disposition home or self-care (01) ==
LOC: EDSEX → EMR 03:33
DX: F10.10 Alcohol abuse, uncomplicated (principal)
CPT/HCPCS: 99282

== ENCOUNTER 2019-09-04 07:10 | Inpatient (IN) | payer MEDICAID ==
[~2019-09-04] VITALS: Ht 162.6 cm; Wt 120.7 kg
[2019-09-04] VITALS (7 sets, daily range): BP systolic 127–168; BP diastolic 74–108
[~2019-09-04 07:10] MED LIST changes: +FAMOTIDINE20 MG ORAL
--- NOTE | 2019-09-04 07:20 | NUR ---
ED Nurse Note: Patient walked into ED from home c/o n/v and 10/10 cramping upper abdominal pain since 4AM this morning. Patient states he has been drinking has liquor throughout the night, last drink was around 3AM. Patient AxO x 4, cooperative, no s/s of acute distress. Patient on the campus monitor.
--- NOTE | 2019-09-04 07:30 | NUR ---
ED Nurse Note: 20 g IV started in right basilic vein, blood drawn and sent to lab, along with urine.
[2019-09-04 07:57] LABS: APPEARANCE,URINE CLEAR; BILIRUBIN, URINE NEGATIVE (NEGATIVE); GLUCOSE, URINE (UA) 2+ (NEGATIVE); KETONES,URINE 3+ (NEGATIVE); LEUKOCYTE ESTERASE ,URINE NEGATIVE (NEGATIVE); NITRITE,URINE NEGATIVE (NEGATIVE); PH,URINE 5 (4.5-8.0); PROTEIN,URINE 3+ (NEGATIVE); UROBILINOGEN,URINE NORMAL MG/DL (0.0-1.0)
[2019-09-04 07:59] LABS: COLOR,URINE YELLOW
[2019-09-04] MEDS ORDERED: Morphine Sulfate 4mg/ml Inj (IV USE ONLY) IVP ONE (08:15)
[2019-09-04 08:38] LABS: AMMONIA 28 umol/L (11-32); ANION GAP 19 mmol/L (5-15); BLOOD UREA NITROGEN 16 mg/dL (7-18); CALCIUM 8.2 MG/DL (8.5-10.1); CARBON DIOXIDE 22 MMOL/L (21-32); CHLORIDE 97 MMOL/L (98-107); CREATININE 1.4 MG/DL (0.55-1.30); POTASSIUM 3.6 MMOL/L (3.5-5.1); SODIUM 137 MMOL/L (136-145)
[2019-09-04 08:42] LABS: ALANINE AMINOTRANSFERASE 59 U/L (12-78); ALBUMIN/GLOBULIN RATIO 1.1 (1.0-2.7); ALKALINE PHOSPHATASE 127 U/L (46-116); ASPARTATE AMINO TRANSFERASE 29 U/L (15-37); BILIRUBIN,TOTAL 0.6 MG/DL (0.2-1.0)
--- NOTE | 2019-09-04 08:48 | Emergency Room Report ---
History of Present Illness General Chief Complaint: Abdominal Pain Source: Patient Present Illness HPI This patient has a long history of alcohol abuse. He states he has been drinking heavily for many years. He states he thinks he is diabetic. He does not take any medications. He states for the past 2 days he has had upper abdominal pain. He did drink heavily yesterday and last night. He is also had nausea and vomiting. He denies chest pain or shortness of breath. He denies fever or chills. He denies cough or congestion. He has no other complaints. Allergies: Coded Allergies: No Known Allergies (Verified , 10/29/17) COVID-19 Screening Contact w/high risk pt: No Recent Travel to affected area: No Experienced COVID-19 symptoms?: No COVID-19 Testing performed CHIEF LIFESTYLE OFFICER: No Patient History Past Medical History: see triage record, DM, other - Vertigo, Anxiety, ADHD Social History: Reports: alcohol use - Heavy ETOH use/abuse; Denies: smoking, drug use Reviewed Nursing Documentation: PMH: Agreed; PSxH: Agreed Nursing Documentation-PMH Past Medical History: No History, Except For Hx Diabetes: No Hx Gastrointestinal Problems: No Hx Neurological Problems: No Review of Systems All Other Systems: negative except mentioned in HPI Physical Exam Vital Signs Date Time Temp Pulse Resp B/P (MAP) Pulse Ox O2 Delivery O2 Flow Rate FiO2 09/04/19 07:18 98.2 115 16 186/107 (133) 95 Room Air Sp02 EP Interpretation: reviewed, normal General Appearance: no apparent distress, alert, GCS 15, non-toxic Head: normocephalic, atraumatic Eyes: bilateral eye normal inspection, bilateral eye PERRL ENT: hearing grossly normal, normal pharynx, no angioedema, normal voice Neck: full range of motion, supple/symm/no masses Respiratory: chest non-tender, lungs clear, normal breath sounds, no respiratory distress, no retraction, no accessory muscle use, speaking full sentences Cardiovascular #1: no edema, tachycardia Gastrointestinal: normal bowel sounds, soft, non-distended, no guarding, no rebound, tenderness - TTP in the epigastrium and RUQ Rectal: deferred Musculoskeletal: back normal, normal range of motion, gait/station normal, non- tender Neurologic: alert, motor strength/tone normal, oriented x3, sensory intact, responsive, speech normal Psychiatric: judgement/insight normal, memory normal, mood/affect normal, no suicidal/homicidal ideation Skin: no rash, normal color Medical Decision Making Diagnostic Impression: Primary Impression: Gastritis Additional Impressions: Hyperglycemia Intractable abdominal pain Intractable vomiting ER Course This patient had no evidence of pancreatitis or acute hepatitis. Given the patient's ongoing tenderness and pain in his abdomen, I did obtain a CT of the abdomen and pelvis which showed no acute findings. I also obtained a right upper quadrant ultrasound which was also negative for any abnormal gallbladder findings. The patient did have a fatty liver which is to be expected with his history of alcohol abuse. The patient continued to have severe pain and recurrent vomiting. Possibly this patient has severe gastritis or peptic ulcer disease. Regardless, I was unable to discharge this patient home at this time. He was admitted for intractable abdominal pain and vomiting. The patient does have a history of heavy alcohol abuse and dependence. He will likely withdrawal. He is admitted for further monitoring, evaluation and treatment. Laboratory Tests Test 09/04/19 07:25 09/04/19 07:50 Urine Color Yellow Urine Appearance Clear Urine pH 5 (4.5-8.0) Urine Specific [place] 1.025 (1.005-1.035) Urine Protein 3+ (NEGATIVE) H Urine Glucose (UA) 2+ (NEGATIVE) H Urine Ketones 3+ (NEGATIVE) H Urine Blood 3+ (NEGATIVE) H Urine Nitrite Negative (NEGATIVE) Urine Bilirubin Negative (NEGATIVE) Urine Urobilinogen Normal MG/DL (0.0-1.0) Urine Leukocyte Esterase Negative (NEGATIVE) Urine RBC 2-4 /HPF (0 - 0) H Urine WBC 0-2 /HPF (0 - 0) Urine Squamous Epithelial Cells Occasional /LPF Urine Bacteria Occasional /HPF (NONE) Urine Fine Granular Casts 0-2 /LPF (NONE) H Urine Mucus Moderate /LPF (NONE/OCC) H White Blood Count 10.9 K/UL (4.8-10.8) H Red Blood Count 5.67 M/UL (4.70-6.10) Hemoglobin 16.9 G/DL (14.2-18.0) Hematocrit 51.2 % (42.0-52.0) Mean Corpuscular Volume 90 FL (80-99) Mean Corpuscular Hemoglobin 29.8 PG (27.0-31.0) Mean Corpuscular Hemoglobin Concent 33.0 G/DL (32.0-36.0) Red Cell Distribution Width 11.7 % (11.6-14.8) Platelet Count 193 K/UL (150-450) Mean Platelet Volume 7.9 FL (6.5-10.1) Neutrophils (%) (Auto) 61.2 % (45.0-75.0) Lymphocytes (%) (Auto) 31.5 % (20.0-45.0) Monocytes (%) (Auto) 5.8 % (1.0-10.0) Eosinophils (%) (Auto) 0.2 % (0.0-3.0) Basophils (%) (Auto) 1.3 % (0.0-2.0) Prothrombin Time 11.2 SEC (9.30-11.50) Prothrombin Time INR 1.0 (0.9-1.1) Activated Partial Thromboplast Time 24 SEC (23-33) Sodium Level 137 MMOL/L (136-145) Potassium Level 3.6 MMOL/L (3.5-5.1) Chloride Level 97 MMOL/L (98-107) L Carbon Dioxide Level 22 MMOL/L (21-32) Anion Gap 19 mmol/L (5-15) H Blood Urea Nitrogen 16 mg/dL (7-18) Creatinine 1.4 MG/DL (0.55-1.30) H Estimated Glomerular Filtration Rate 53.2 mL/min (>60) Glucose Level 195 MG/DL (74-106) H Calcium Level 8.2 MG/DL (8.5-10.1) L Total Bilirubin 0.6 MG/DL (0.2-1.0) Aspartate Amino Transferase (AST) 29 U/L (15-37) Alanine Aminotransferase (ALT) 59 U/L (12-78) Alkaline Phosphatase 127 U/L (46-116) H Ammonia 28 umol/L (11-32) Total Protein 7.8 G/DL (6.4-8.2) Albumin 4.0 G/DL (3.4-5.0) Globulin 3.8 g/dL Albumin/Globulin Ratio 1.1 (1.0-2.7) Lipase 174 U/L (73-393) Serum Alcohol 32 mg/dL EKG Diagnostic Results Rate: normal Rhythm: NSR ST Segments: no acute changes Rhythm Strip Diag. Results EP Interpretation: yes Rate: 90's Rhythm: NSR, no PVC's, no ectopy CT/MRI/US Diagnostic Results CT/MRI/US Diagnostic Results : Imaging Test Ordered: CT abd/pelvis Impression CT abd/pelvis: Impression: Limited assessment of the GI tract, due to lack of enteric contrast administration No definite acute abnormality Mildly distended gallbladder, but no stones or wall thickening Fatty liver Mild prostatomegaly Colonic diverticulosis. No evidence of diverticulitis Incidental findings as noted, including dependent pulmonary atelectatic changes , mild degenerative spondylosis changes, retroaortic left renal vein, small left inguinal hernia containing only fat RUQ US: Impression: Liver demonstrates diffusely increased echogenicity, consistent with diffuse hepatocellular disease, most likely fatty change. Also demonstrated on recent CT scan Negative for dilated ducts or gallstones or other abnormality Note inability to visualize pancreas and portions of the abdominal aorta Last Vital Signs Date Time Temp Pulse Resp B/P (MAP) Pulse Ox O2 Delivery O2 Flow Rate FiO2 09/04/19 07:30 98.2 115 16 164/102 95 Room Air Disposition: ADMITTED INPATIENT Condition: Serious Referrals: NOT CHOSEN IPA/,REFERRING (PCP) Josseline Sainz DO Sep 04, 2019 08:48
[2019-09-04 08:50] LABS: BASOPHILS % (AUTO) 1.3 % (0.0-2.0); EOSINOPHILS % (AUTO) 0.2 % (0.0-3.0); HEMATOCRIT 51.2 % (42.0-52.0); HEMOGLOBIN 16.9 G/DL (14.2-18.0); LYMPHOCYTES % (AUTO) 31.5 % (20.0-45.0); MEAN CORPUSCULAR VOLUME 90 FL (80-99); MONOCYTES % (AUTO) 5.8 % (1.0-10.0); NEUTROPHILS % (AUTO) 61.2 % (45.0-75.0); PLATELET COUNT 193 K/UL (150-450); RED BLOOD COUNT 5.67 M/UL (4.70-6.10); RED CELL DISTRIBUTION WIDTH 11.7 % (11.6-14.8); WHITE BLOOD COUNT 10.9 K/UL (4.8-10.8)
[2019-09-04] MEDS ORDERED: Lidocaine 2% Visc 15ml soln ORAL ONE (09:00)
[2019-09-04] MEDS ORDERED: Omnipaque-300 100ml vial INJ PRN (09:00)
--- NOTE | 2019-09-04 09:27 | NUR ---
ED Nurse Note: Patient taken to CT
--- NOTE | 2019-09-04 09:53 | NUR ---
ED Nurse Note: Patient returned from CT
--- NOTE | 2019-09-04 10:17 | Diagnostic Imaging Report ---
Clinical Indication: Or abdominal pain Technique: No oral contrast utilized, per emergency room physician request IV administration nonionic contrast. Venous phase spiral acquisition obtained through the abdomen and pelvis. Multiplanar reconstructions were generated. Total dose length product 613 mGycm. CTDIvol(s) 11 mGy. Dose reduction achieved using automated exposure control Comparison: 11/22/2015 Findings: Lack of enteric contrast limits assessment of the GI tract. The appendix is normal. There are a few scattered colonic diverticula. No evidence of diverticulitis. Again demonstrated is a small indirect left inguinal hernia that contains only fat. No small bowel distention. No free or loculated intraperitoneal gas or fluid is evident. The distal esophagus, stomach, duodenum are unremarkable. The liver again demonstrates low-attenuation diffusely, consistent with fatty change. The gallbladder is distended as previously. No wall thickening or gallstones. No biliary ductal dilatation. The pancreas, spleen, adrenals, kidneys are all unremarkable. No renal or ureteral calculi, hydronephrosis, or hydroureter demonstrated. There is incidental finding of a retroaortic left renal vein. No pelvic mass or adenopathy. No retroperitoneal or mesenteric mass or adenopathy. The prostate is somewhat prominent. The included lung bases demonstrate dependent atelectatic changes and a mosaic perfusion pattern. The heart is upper limits normal in size. The bones demonstrate mild degenerative spondylosis changes. Previously demonstrated right lung infiltrates are no longer evident. No other significant interim change Impression: Limited assessment of the GI tract, due to lack of enteric contrast administration No definite acute abnormality Mildly distended gallbladder, but no stones or wall thickening Fatty liver Mild prostatomegaly Colonic diverticulosis. No evidence of diverticulitis Incidental findings as noted, including dependent pulmonary atelectatic changes, mild degenerative spondylosis changes, retroaortic left renal vein, small left inguinal hernia containing only fat The CT scanner at [facility] is accredited by the [employer] and the scans are performed using protocols designed to limit radiation exposure to as low as reasonably achievable to attain images of sufficient resolution adequate for diagnostic evaluation.
[2019-09-04] MEDS ORDERED: HYDROcodone/Acetamin 5/325 tab ORAL ONE (10:30)
--- NOTE | 2019-09-04 10:30 | NUR ---
ED Nurse Note: US at bedside
--- NOTE | 2019-09-04 11:59 | NUR ---
ED Nurse Note: Xray at bedside.
--- NOTE | 2019-09-04 12:51 | Diagnostic Imaging Report ---
Indication: Abdominal pain, vomiting, abnormal liver function tests Technique: Curtis-scale and duplex images of the upper abdomen were obtained Comparison: Reference made to abdomen pelvis CT of earlier the same day. No comparison sonograms Findings: Gallbladder is unremarkable, without stones, wall thickening, nor pericholecystic fluid. Sonographic Mcarthur's sign is negative. Common bile duct measures 3 mm in diameter. No intrahepatic biliary ductal dilatation. Liver demonstrates mildly diffusely increased echogenicity, consistent with diffuse hepatocellular disease, most likely fatty change. Portal vein and hepatic veins are patent. Pancreas is obscured by bowel gas. Spleen is unremarkable. Left kidney measures 11.6 cm in length. Right kidney measures 11 cm length. Both kidneys demonstrate normal echogenicity. There is no hydronephrosis. No focal abnormality . Abdominal aorta is partially obscured by bowel gas, visualized portions are non-aneurysmal . Impression: Liver demonstrates diffusely increased echogenicity, consistent with diffuse hepatocellular disease, most likely fatty change. Also demonstrated on recent CT scan Negative for dilated ducts or gallstones or other abnormality Note inability to visualize pancreas and portions of the abdominal aorta
--- NOTE | 2019-09-04 13:10 | NUR ---
ED Nurse Note: Patient returned from CT
--- NOTE | 2019-09-04 13:16 | Diagnostic Imaging Report ---
Indication: Chest pain Technique: One view of the chest Comparison: 10/05/2018 Findings: Lungs and pleural spaces are clear. Heart size is normal. No significant change Impression: No acute process
--- NOTE | 2019-09-04 13:25 | NUR ---
ED Nurse Note: Report given to Thelma LUCIANO.
--- NOTE | 2019-09-04 13:31 | Diagnostic Imaging Report ---
Clinical Indication: Chest pain Technique: Spiral acquisitions obtained through the chest. No IV contrast utilized, reason not stated. Multiplanar reconstructions generated. Total dose length product 419 mGycm. CTDIvol(s) 9 mGy. Dose reduction achieved using automated exposure control Comparison: none Findings: Several sub-5 mm nodules are seen scattered within the right upper lobe. Faint very focal opacities are seen in the posterior inferior right lower lobe. The remainder of the lungs and pleural spaces are clear. The heart size is normal. No pericardial effusion. Granulomatous node calcification is seen in the left hilum. No mediastinal or hilar mass or adenopathy. The thyroid is unremarkable. No axillary or chest wall mass or adenopathy. There is mild bilateral gynecomastia, right greater than left. Included upper abdominal anatomy is remarkable for fatty change of the liver. Contrast from prior contrast abdomen pelvis CT is seen within the renal collecting systems. There are degenerative proliferative changes of the thoracic spine. Impression: Scattered sub-5 mm nodules within the right upper lobe. 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 The liver, there are significant risk factors for lung carcinoma, short interval follow-up CT scan in 6-12 months should be considered Nonspecific very faint focal opacities in the right lower lobe, could represent small areas of inflammation, scarring, or atelectasis No acute process otherwise Fatty liver, also described on earlier imaging studies Incidental findings of mild bilateral gynecomastia and degenerative proliferative spondylosis. The CT scanner at [facility] is accredited by the [employer] and the scans are performed using protocols designed to limit radiation exposure to as low as reasonably achievable to attain images of sufficient resolution adequate for diagnostic evaluation.
--- NOTE | 2019-09-04 13:50 | NUR ---
NURSE NOTES: Received telephone report from ER nurse MUSTAPHA Saini. Patient brought up to floor with RN and transportation clerk Vitor. Belongings list checked and verified. Patient on room air, no signs of distress or labored breathing. IV intact, patent, and saline locked. Patient mostly Australian speaking and complaining of 10/10 pain all over abdomen. Bed in lowest position with call light in reach. Will contact MD for admission orders.
[2019-09-04] MEDS ORDERED: Morphine Sulfate 4mg/ml Inj (IV USE ONLY) IVP PRN (14:15)
[2019-09-04] MEDS: Morphine Sulfate 4mg/ml Inj (IV USE ONLY) IVP PRN ×3 (14:28→20:48)
[2019-09-04] MEDS: D5 1/2NS 1,000 ML IV SCH (14:29)
--- NOTE | 2019-09-04 16:27 | NUR ---
NURSE NOTES: Notified Dr. Dangelo Umana via voicemail of patient's 101.7 temperature and 163/93 BP. Awaiting response and orders. Charge nurse aware. Addendum: 09/04/19 at 1639 by Thelma Contreras RN Cooling measures applied in the mean time.
--- NOTE | 2019-09-04 18:20 | NUR ---
NURSE NOTES: Left message for Dr. Dangelo Umana a second time. Charge nurse aware.
--- NOTE | 2019-09-04 18:24 | NUR ---
NURSE NOTES: Dr. Umana aware of patient's fever and high SBP. stated he will review and put in orders. No orders given to RN. Charge nurse aware.
--- NOTE | 2019-09-04 19:28 | NUR ---
NURSE NOTES: Received patient in bed, awake, alert, oriented x4, [place] Zealander and Japanese speaking, on room air, ambulatory, will monitor for nausea and vomiting, ensure that patient will remain afebrile. IV site is clean dry and intact. Call light is within reach, bed is lowered, locked, alarm is on, will continue to monitor for comfort and safety.
[2019-09-04] MEDS: Piperacillin/Tazobactam 4.5 GM in NS 110 ML IVPB SCH (20:38)
[2019-09-05] VITALS: BP 129/74
[2019-09-05] MEDS: Morphine Sulfate 4mg/ml Inj (IV USE ONLY) IVP PRN ×2 (03:49→10:59)
[2019-09-05] MEDS: D5 1/2NS 1,000 ML IV SCH ×2 (03:52→17:10)
[2019-09-05 04:00] VITALS: BP 137/74
[2019-09-05] MEDS: Piperacillin/Tazobactam 4.5 GM in NS 110 ML IVPB SCH ×3 (05:54→21:46)
--- NOTE | 2019-09-05 07:25 | NUR ---
HAND-OFF: Report given to Peyton LUCIANO.
[2019-09-05 08:00] VITALS: BP 153/80
--- NOTE | 2019-09-05 08:00 | NUR ---
NURSE NOTES: Patient awake and alert and oriented,respiration unlabored.IV fluids infusing as ordered.Patient taking some clear liquids for breakfast,will monitor.Call light within reach.
--- NOTE | 2019-09-05 11:58 | History & Physical ---
History and Physical History & Physicial dictated Dangelo Umana MD Sep 05, 2019 11:58
[2019-09-05 12:00] VITALS: BP 149/85
[2019-09-05 16:00] VITALS: BP 140/84
[2019-09-05] MEDS ORDERED: D5 1/2NS 1000ml IV ONE (16:14)
--- NOTE | 2019-09-05 17:15 | History and Physical Report ---
DATE OF ADMISSION: 09/04/2019 CHIEF COMPLAINT: Vomiting and some abdominal pain. HISTORY OF PRESENT ILLNESS: This is a 54-year-old male with history of alcohol abuse. He started drinking about 8 days ago and stopped 2 days ago. However, yesterday he started to vomit and had some epigastric pain as well. He finally came to the emergency room. He has had similar episodes in the past. PAST MEDICAL HISTORY: Also history of diabetes, anxiety, vertigo. SOCIAL HISTORY: History of alcohol abuse. No history of smoking. 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 ALLERGIES: No known drug allergies. REVIEW OF SYSTEMS: As above. PHYSICAL EXAMINATION: GENERAL: The patient is a moderately obese male, in no distress. VITAL SIGNS: Blood pressure is 153/80, pulse 81, temperature 97.9, respiratory rate 19. HEENT: [place] conjunctivae. Anicteric sclerae. NECK: Supple. LUNGS: Clear to auscultation. HEART: S1, S2 without murmurs or rubs. ABDOMEN: Soft. There is some mild epigastric tenderness. EXTREMITIES: No cyanosis or edema. LABORATORY FINDINGS: CBC shows a WBC of 10,900, hematocrit 51.2, hemoglobin 16.2, platelets 193,000. Chemistry panel shows a serum sodium of 137, potassium 3.6, chloride 97, BUN is 16, creatinine 1.4. Glucose is 195. Calcium is 8.2. Lipase is 174. UA was unremarkable. ASSESSMENT: This is a 54-year-old male who was admitted with nausea and vomiting, some abdominal pain, possibly as a result of alcohol abuse. The patient may have erosive gastritis or peptic ulcer disease, doubt pancreatitis. His lipase was 174 on admission. PLAN: The patient will be on IV fluids and Protonix. We will start the patient on clear liquid diet and advance the diet as tolerated. Labs will be followed and adjustments will be made in the patient's regimen. Dangelo Umana M.D. DR: GEO JOB#: [id number] CC:
--- NOTE | 2019-09-05 18:00 | NUR ---
NURSE NOTES: patient resting,no complaint of pain,IV fluids continue to infuse as ordered.Call light within reach.
--- NOTE | 2019-09-05 19:38 | NUR ---
HAND-OFF: Report given to Froilan LUCIANO. Addendum: 09/05/19 at 2006 by SANTOS CRUZ RN RN HAND-OFF: Report given to Surekha LUCIANO.
--- NOTE | 2019-09-05 19:40 | NUR ---
NURSE NOTES: Report received from Peyton LUCIANO, pt. is sitting in bed, awake, alert and oriented, denies any pain at this time, with call light within reach.
[2019-09-05 20:00] VITALS: BP 151/79
[2019-09-06] VITALS: BP 131/90
[2019-09-06] MEDS: D5 1/2NS 1,000 ML IV SCH (02:08)
[2019-09-06 04:00] VITALS: BP 138/86
[2019-09-06] MEDS: Piperacillin/Tazobactam 4.5 GM in NS 110 ML IVPB SCH ×2 (05:17→13:57)
--- NOTE | 2019-09-06 07:13 | NUR ---
NURSE NOTES: Report given to Peyton LUCIANO.
[2019-09-06 07:56] LABS: BASOPHILS % (AUTO) 1.2 % (0.0-2.0); EOSINOPHILS % (AUTO) 1.4 % (0.0-3.0); HEMATOCRIT 45.5 % (42.0-52.0); HEMOGLOBIN 14.5 G/DL (14.2-18.0); LYMPHOCYTES % (AUTO) 28.8 % (20.0-45.0); MEAN CORPUSCULAR VOLUME 95 FL (80-99); MONOCYTES % (AUTO) 7.4 % (1.0-10.0); NEUTROPHILS % (AUTO) 61.2 % (45.0-75.0); PLATELET COUNT 137 K/UL (150-450); RED BLOOD COUNT 4.81 M/UL (4.70-6.10); RED CELL DISTRIBUTION WIDTH 13.1 % (11.6-14.8); WHITE BLOOD COUNT 4.9 K/UL (4.8-10.8)
[2019-09-06 08:00] VITALS: BP 141/66
--- NOTE | 2019-09-06 08:00 | NUR ---
NURSE NOTES: Patient awake and alert and oriented,respirations unlabored.IV fluids infusing as ordered.Patient tolerated clear liquids this Am.No complaint of nausea or vomiting.Call light within reach.
[2019-09-06 08:06] LABS: ALANINE AMINOTRANSFERASE 71 U/L (12-78); ALBUMIN 3.2 G/DL (3.4-5.0); ALBUMIN/GLOBULIN RATIO 0.9 (1.0-2.7); ALKALINE PHOSPHATASE 102 U/L (46-116); ANION GAP 8 mmol/L (5-15); ASPARTATE AMINO TRANSFERASE 54 U/L (15-37); BILIRUBIN,TOTAL 0.9 MG/DL (0.2-1.0); BLOOD UREA NITROGEN 8 mg/dL (7-18); CALCIUM 8.2 MG/DL (8.5-10.1); CARBON DIOXIDE 27 MMOL/L (21-32); CHLORIDE 100 MMOL/L (98-107); CREATININE 1.4 MG/DL (0.55-1.30); POTASSIUM 3.4 MMOL/L (3.5-5.1); SODIUM 135 MMOL/L (136-145)
--- NOTE | 2019-09-06 10:54 | General Progress Note ---
Assessment/Plan Problem List: (1) Hyperglycemia Assessment & Plan: Creatinine 1.4 with proteinuria likely diabetic nephropathy ICD Codes: R73.9 - Hyperglycemia, unspecified SNOMED: 71033071 (2) Intractable vomiting ICD Codes: R11.10 - Vomiting, unspecified SNOMED: 037706859 (3) Alcohol abuse ICD Codes: F10.10 - Alcohol abuse, uncomplicated SNOMED: 82039586, 21345705 (4) Gastritis ICD Codes: K29.70 - Gastritis, unspecified, without bleeding SNOMED: 9361132 (5) Obesity ICD Codes: E66.9 - Obesity, unspecified SNOMED: 288693865, 545209163 Status: stable Status Narrative This is a 54-year-old male who was admitted with nausea and vomiting, some abdominal pain, possibly as a result of alcohol abuse. The patient may have erosive gastritis or peptic ulcer disease, doubt pancreatitis. His lipase was 174 on admission. Assessment/Plan: Coverage for Dr. Dangelo Umana today September 06, 2019 keep on clear liquid diet Change IV to normal saline Change Protonix to IV Keep the blood sugar and blood pressure in check Advance diet as possible Check hemoglobin A1c, TSH, lipid panel, Per orders Subjective ROS Limited/Unobtainable: No Constitutional: Reports: malaise Allergies: Coded Allergies: No Known Allergies (Verified , 10/29/17) Objective Last 24 Hour Vital Signs Date Time Temp Pulse Resp B/P (MAP) Pulse Ox O2 Delivery O2 Flow Rate FiO2 09/06/19 08:00 97.7 69 18 141/66 (91) 97 09/06/19 04:00 97.9 69 18 138/86 (103) 96 09/06/19 00:00 98.1 72 18 131/90 (104) 97 09/05/19 21:00 Room Air 09/05/19 20:00 98.2 67 19 151/79 (103) 92 09/05/19 16:00 98.1 75 19 140/84 (102) 97 09/05/19 12:00 98.7 69 19 149/85 (106) 98 Intake and Output 09/05/19 09/06/19 19:00 07:00 Intake Total 600 ml 1935.0 ml Output Total 700 ml 2000 ml Balance -100 ml -65.0 ml Intake Oral 1000 ml IV Total 600 ml 935.0 ml Output Urine Total 700 ml 2000 ml # Voids 6 Laboratory Tests 09/06/19 06:25: White Blood Count 4.9, Red Blood Count 4.81, Hemoglobin 14.5, Hematocrit 45.5, Mean Corpuscular Volume 95, Mean Corpuscular Hemoglobin 30.2, Mean Corpuscular Hemoglobin Concent 31.9L, Red Cell Distribution Width 13.1, Platelet Count 137L , Mean Platelet Volume 7.4, Neutrophils (%) (Auto) 61.2, Lymphocytes (%) (Auto) 28.8, Monocytes (%) (Auto) 7.4, Eosinophils (%) (Auto) 1.4, Basophils (%) (Auto ) 1.2, Sodium Level 135L, Potassium Level 3.4L, Chloride Level 100, Carbon Dioxide Level 27, Anion Gap 8, Blood Urea Nitrogen 8, Creatinine 1.4H, Estimat Glomerular Filtration Rate 53.2, Glucose Level 222H, Calcium Level 8.2L, Total Bilirubin 0.9, Aspartate Amino Transf (AST/SGOT) 54H, Alanine Aminotransferase ( ALT/SGPT) 71, Alkaline Phosphatase 102, Total Protein 6.6, Albumin 3.2L, Globulin 3.4, Albumin/Globulin Ratio 0.9L Height (Feet): 5 Height (Inches): 4.00 Weight (Pounds): 266 General Appearance: no apparent distress Respiratory/Chest: decreased breath sounds Abdomen: distended, other Kel Jerez MD Sep 06, 2019 10:54
[2019-09-06] MEDS ORDERED: Hydromorphone 0.5mg/0.5ml inj IVP PRN (11:00)
[2019-09-06 12:00] VITALS: BP 139/84
[2019-09-06 16:00] VITALS: BP 141/83
--- NOTE | 2019-09-06 18:52 | NUR ---
NURSE NOTES: Patient resting,tolerating clear liquids,no complaint at this time.Iv fluids infusing.Call light within reach.
--- NOTE | 2019-09-06 19:43 | NUR ---
HAND-OFF: Report given to Coty ALEMAN.
[2019-09-06 20:00] VITALS: BP 140/80
--- NOTE | 2019-09-06 20:00 | NUR ---
NURSE NOTES: RECEIVED PATIENT LYING IN BED, AWAKE, ALERT/ORIENTED X3, ABLE TO EFFECTIVELY VERBALIZE NEEDS, DENIES PAIN. NO SIGNS AND SYMPTOMS OF ACUTE CARDIO RESPIRATORY DISTRESS/SHORTNESS OF BREATH, DENIES CHEST PAIN, NO EDEMA NOTED. IV INTACT, NO REDNESS/SWELLING NOTED TO SITE/SALINE LOCK. CONTINENT OF B/B, ABDOMEN SOFT/NON TENDER/AUDIBLE BOWEL SOUNDS/DENIES PAIN, NO NAUSEA/VOMITING/DIARRHEA, CONTINUE ON CLEAR LIQUID DIET, PATIENT AWARE. SIDE RAILS UP X2 FOR MOBILITY, BED IN LOWEST POSITION FOR SAFETY, ENCOURAGED PATIENT TO UTILIZE CALL LIGHT FOR ASSISTANCE, VERBALIZED UNDERSTANDING. CONTINUE WITH CURRENT PLAN OF CARE. NAD.
--- NOTE | 2019-09-06 20:25 | NUR ---
NURSE NOTES:Explained to patient the potential side effects of new medication protonix, as in diarrhoea and headache.
[2019-09-06] MEDS: Pantoprazole Inj IVP SCH (20:27)
--- NOTE | 2019-09-06 21:00 | Consultation ---
DATE OF CONSULTATION: 09/06/2019 INFECTIOUS DISEASE CONSULTATION CONSULTING PHYSICIAN: Alexx Umana M.D. PRIMARY ATTENDING PHYSICIAN: Dangelo Umana M.D. REASON FOR CONSULT: Fever. HISTORY OF PRESENT ILLNESS: A 54-year-old male admitted on September 04, 2019 because of nausea, vomiting. Has history of alcohol abuse and has been drinking for a couple of days day and night. He has also epigastric pain. During the course of hospitalization, developed fever with temperature up to 101.7 in the night of admission. PAST MEDICAL HISTORY: Significant for diabetes mellitus, anxiety, and vertigo. ALLERGIES: No known drug allergies. MEDICATIONS: Protonix, hydromorphone, Zosyn, Zofran. SOCIAL HISTORY: He is from [place]. . Has problem with alcohol abuse for many years. Denies any drug abuse or smoking. REVIEW OF SYSTEMS: No fever, no chills today. No coughing. No shortness of breath. Has some epigastric pain, currently on liquid diet as tolerated. No problem passing urine. PHYSICAL EXAMINATION: VITAL SIGNS: Temperature 97.9, pulse 60, blood pressure 139/84. GENERAL APPEARANCE: No acute distress. Well developed. HEAD AND NECK: [place] conjunctivae. HEART: Normal rate. LUNGS: Clear. ABDOMEN: Soft, nontender. EXTREMITIES: No edema. NEUROLOGIC: Awake, alert, oriented x3. Ambulatory. LABORATORY AND DIAGNOSTIC DATA: WBC 4.9, hemoglobin 14.5, hematocrit 45.5, platelets 137. Sodium 135, potassium 3.5, chloride 104, bicarbonate 27, BUN 8, creatinine 1.4, glucose is 222. UA showed WBC of 0 to 2. The patient had a CT scan of the abdomen and pelvis that showed diverticulosis and fatty liver. Chest CT showed old granulomatous disease. Chest x-ray was negative. IMPRESSION: 1. Fever. So far, the imaging study and UA are negative and leukocytosis is within normal limits. 2. Alcohol abuse likely with gastritis with intractable vomiting. 3. Diabetes mellitus with hyperglycemia. 4. Diverticulosis. 5. Alcoholic fatty liver. RECOMMENDATIONS: Discontinue Zosyn. Observe off antibiotic. If the patient develops fever, resend cultures. At the end of my exam, I thank Dr. Dangelo Umana for involving me in the care of this patient. Alexx Umana M.D. DR: OLEG JOB#: [id number] CC:
[2019-09-07] VITALS: BP 133/84
[2019-09-07 04:00] VITALS: BP 140/90
--- NOTE | 2019-09-07 06:12 | NUR ---
NURSE NOTES: RESTED WELL, NO SIGNIFICANT CHANGE OF CONDITION NOTED THROUGHOUT THE NIGHT. SAFETY MAINTAINED. NAD.
--- NOTE | 2019-09-07 07:24 | NUR ---
HAND-OFF: Report given to MUSTAPHA AMOS.
[2019-09-07 07:32] LABS: BASOPHILS % (AUTO) 1.6 % (0.0-2.0); EOSINOPHILS % (AUTO) 2.9 % (0.0-3.0); HEMATOCRIT 45.2 % (42.0-52.0); HEMOGLOBIN 14.4 G/DL (14.2-18.0); LYMPHOCYTES % (AUTO) 36.4 % (20.0-45.0); MEAN CORPUSCULAR VOLUME 95 FL (80-99); MONOCYTES % (AUTO) 6.4 % (1.0-10.0); NEUTROPHILS % (AUTO) 52.6 % (45.0-75.0); PLATELET COUNT 135 K/UL (150-450); RED BLOOD COUNT 4.75 M/UL (4.70-6.10); RED CELL DISTRIBUTION WIDTH 12.9 % (11.6-14.8); WHITE BLOOD COUNT 4.9 K/UL (4.8-10.8)
[2019-09-07 08:00] VITALS: BP 144/80
[2019-09-07 08:13] LABS: ALANINE AMINOTRANSFERASE 101 U/L (12-78); ALBUMIN 3.1 G/DL (3.4-5.0); ALBUMIN/GLOBULIN RATIO 0.9 (1.0-2.7); ALKALINE PHOSPHATASE 95 U/L (46-116); ANION GAP 9 mmol/L (5-15); ASPARTATE AMINO TRANSFERASE 79 U/L (15-37); BILIRUBIN,TOTAL 0.6 MG/DL (0.2-1.0); BLOOD UREA NITROGEN 9 mg/dL (7-18); CALCIUM 8.1 MG/DL (8.5-10.1); CARBON DIOXIDE 26 MMOL/L (21-32); CHLORIDE 103 MMOL/L (98-107); CHOLESTEROL 165 MG/DL (< 200); CREATININE 0.8 MG/DL (0.55-1.30); GAMMA GLUTAMYL TRANSPEPTIDASE 312 U/L (5-85); HDL CHOLESTEROL 42 MG/DL (40-60); PHOSPHORUS 3.1 MG/DL (2.5-4.9); POTASSIUM 3.3 MMOL/L (3.5-5.1); SODIUM 138 MMOL/L (136-145); TRIGLYCERIDES 159 MG/DL (30-150)
--- NOTE | 2019-09-07 08:46 | NUR ---
CHARGE NURSE NOTE: No complains of pain or signs of discomfort, pt still on clear liquid diet. K3.3. was called, message left. Awaiting call back.
[2019-09-07] MEDS: Pantoprazole Inj IVP SCH (09:00)
--- NOTE | 2019-09-07 10:51 | NUR ---
CHARGE NURSE NOTE: Protonix was scanned, saved. Had a comp. problems, comp was frozen. Unable to save, did it manually.
[2019-09-07 12:00] VITALS: BP 138/81
--- NOTE | 2019-09-07 12:06 | Infectious Diseases Prog Note ---
Assessment/Plan Assessment/Plan IMPRESSION: 1. Fever, resolved 2. Alcohol abuse likely with gastritis with intractable vomiting. 3. Diabetes mellitus with hyperglycemia. 4. Diverticulosis. 5. Alcoholic fatty liver. RECOMMENDATIONS: Observe off antibiotic. Subjective ROS Limited/Unobtainable: No Constitutional: Reports: no symptoms Respiratory: Reports: no symptoms Cardiovascular: Reports: no symptoms Gastrointestinal/Abdominal: Reports: no symptoms Genitourinary: Reports: no symptoms Allergies: Coded Allergies: No Known Allergies (Verified , 10/29/17) Objective Vital Signs Last 24 Hour Vital Signs Date Time Temp Pulse Resp B/P (MAP) Pulse Ox O2 Delivery O2 Flow Rate FiO2 09/07/19 08:00 97.3 51 16 144/80 (101) 95 09/07/19 04:00 97.5 61 18 140/90 (107) 97 09/07/19 00:00 98.2 60 18 133/84 (100) 95 09/06/19 21:01 Room Air 09/06/19 20:00 98.2 63 20 140/80 (100) 96 09/06/19 16:00 98.1 64 19 141/83 (102) 95 Height (Feet): 5 Height (Inches): 4.00 Weight (Pounds): 266 General Appearance: no acute distress HEENT: mucous membranes moist Respiratory/Chest: lungs clear Cardiovascular: normal rate Abdomen: soft, non tender Extremities: no edema Neurologic/Psychiatric: alert, oriented x 3, responsive Laboratory Tests Test 09/07/19 06:35 White Blood Count 4.9 K/UL (4.8-10.8) Red Blood Count 4.75 M/UL (4.70-6.10) Hemoglobin 14.4 G/DL (14.2-18.0) Hematocrit 45.2 % (42.0-52.0) Mean Corpuscular Volume 95 FL (80-99) Mean Corpuscular Hemoglobin 30.4 PG (27.0-31.0) Mean Corpuscular Hemoglobin Concent 31.9 G/DL (32.0-36.0) L Red Cell Distribution Width 12.9 % (11.6-14.8) Platelet Count 135 K/UL (150-450) L Mean Platelet Volume 7.3 FL (6.5-10.1) Neutrophils (%) (Auto) 52.6 % (45.0-75.0) Lymphocytes (%) (Auto) 36.4 % (20.0-45.0) Monocytes (%) (Auto) 6.4 % (1.0-10.0) Eosinophils (%) (Auto) 2.9 % (0.0-3.0) Basophils (%) (Auto) 1.6 % (0.0-2.0) Sodium Level 138 MMOL/L (136-145) Potassium Level 3.3 MMOL/L (3.5-5.1) L Chloride Level 103 MMOL/L (98-107) Carbon Dioxide Level 26 MMOL/L (21-32) Anion Gap 9 mmol/L (5-15) Blood Urea Nitrogen 9 mg/dL (7-18) Creatinine 0.8 MG/DL (0.55-1.30) Estimat Glomerular Filtration Rate > 60 mL/min (>60) Glucose Level 139 MG/DL (74-106) H Hemoglobin A1c 9.8 % (4.3-6.0) H Uric Acid 2.3 MG/DL (2.6-7.2) L Calcium Level 8.1 MG/DL (8.5-10.1) L Phosphorus Level 3.1 MG/DL (2.5-4.9) Magnesium Level 2.0 MG/DL (1.8-2.4) Total Bilirubin 0.6 MG/DL (0.2-1.0) Gamma Glutamyl Transpeptidase 312 U/L (5-85) H Aspartate Amino Transf (AST/SGOT) 79 U/L (15-37) H Alanine Aminotransferase (ALT/SGPT) 101 U/L (12-78) H Alkaline Phosphatase 95 U/L (46-116) C-Reactive Protein, Quantitative 0.9 mg/dL (0.00-0.90) Pro-B-Type Natriuretic Peptide 14 pg/mL (0-125) Total Protein 6.6 G/DL (6.4-8.2) Albumin 3.1 G/DL (3.4-5.0) L Globulin 3.5 g/dL Albumin/Globulin Ratio 0.9 (1.0-2.7) L Triglycerides Level 159 MG/DL (30-150) H Cholesterol Level 165 MG/DL (< 200) LDL Cholesterol 102 mg/dL (<100) H HDL Cholesterol 42 MG/DL (40-60) Cholesterol/HDL Ratio 3.9 (3.3-4.4) Thyroid Stimulating Hormone (TSH) 4.141 uiU/mL (0.358-3.740) Current Medications Medications (Trade) Dose Ordered Sig/Tal Route PRN Reason Start Time Stop Time Status Last Admin Dose Admin Acetaminophen (Tylenol) 650 mg Q4H PRN ORAL Temp >100.5 09/04/19 18:30 10/04/19 18:29 09/04/19 18:43 Hydromorphone HCl (Dilaudid) 0.5 mg Q6H PRN IVP For Pain over 6 09/06/19 11:00 09/13/19 10:59 Ondansetron HCl (Zofran) 4 mg Q4H PRN IVP Nausea & Vomiting 09/04/19 14:15 10/04/19 14:14 09/05/19 11:05 Pantoprazole (Protonix) 40 mg EVERY 12 HOURS IVP 09/06/19 21:00 10/06/19 20:59 09/07/19 09:00 Sodium Chloride 1,000 ml @ 50 mls/hr Q20H IV 09/06/19 11:00 10/06/19 10:59 09/07/19 06:23 Alexx Umana MD Sep 07, 2019 12:06
--- NOTE | 2019-09-07 12:35 | General Progress Note ---
Assessment/Plan Problem List: (1) Intractable vomiting ICD Codes: R11.10 - Vomiting, unspecified SNOMED: 212803474 (2) Alcohol abuse ICD Codes: F10.10 - Alcohol abuse, uncomplicated SNOMED: 47544631, 16628715 (3) Gastritis ICD Codes: K29.70 - Gastritis, unspecified, without bleeding SNOMED: 8244695 (4) Diabetes ICD Codes: E11.9 - Type 2 diabetes mellitus without complications SNOMED: 66520611 Status: stable Assessment/Plan: advance diet agree with ppi add prn reglan tight DM control EGD plans on hold add Thimaine/folate/MVI Subjective ROS Limited/Unobtainable: Yes Allergies: Coded Allergies: No Known Allergies (Verified , 10/29/17) Objective Last 24 Hour Vital Signs Date Time Temp Pulse Resp B/P (MAP) Pulse Ox O2 Delivery O2 Flow Rate FiO2 09/07/19 08:00 97.3 51 16 144/80 (101) 95 09/07/19 04:00 97.5 61 18 140/90 (107) 97 09/07/19 00:00 98.2 60 18 133/84 (100) 95 09/06/19 21:01 Room Air 09/06/19 20:00 98.2 63 20 140/80 (100) 96 09/06/19 16:00 98.1 64 19 141/83 (102) 95 Intake and Output 09/06/19 09/07/19 19:00 07:00 Intake Total 1505 ml 970 ml Output Total 700 ml 700 ml Balance 805 ml 270 ml Intake Oral 1080 ml 420 ml IV Total 425 ml 550 ml Output Urine Total 700 ml 700 ml Laboratory Tests 09/07/19 06:35: White Blood Count 4.9, Red Blood Count 4.75, Hemoglobin 14.4, Hematocrit 45.2, Mean Corpuscular Volume 95, Mean Corpuscular Hemoglobin 30.4, Mean Corpuscular Hemoglobin Concent 31.9L, Red Cell Distribution Width 12.9, Platelet Count 135L , Mean Platelet Volume 7.3, Neutrophils (%) (Auto) 52.6, Lymphocytes (%) (Auto) 36.4, Monocytes (%) (Auto) 6.4, Eosinophils (%) (Auto) 2.9, Basophils (%) (Auto ) 1.6, Sodium Level 138, Potassium Level 3.3L, Chloride Level 103, Carbon Dioxide Level 26, Anion Gap 9, Blood Urea Nitrogen 9, Creatinine 0.8, Estimat Glomerular Filtration Rate > 60, Glucose Level 139H, Hemoglobin A1c 9.8H, Uric Acid 2.3L, Calcium Level 8.1L, Phosphorus Level 3.1, Magnesium Level 2.0, Total Bilirubin 0.6, Gamma Glutamyl Transpeptidase 312H, Aspartate Amino Transf (AST/ SGOT) 79H, Alanine Aminotransferase (ALT/SGPT) 101H, Alkaline Phosphatase 95, C- Reactive Protein, Quantitative 0.9, Pro-B-Type Natriuretic Peptide 14, Total Protein 6.6, Albumin 3.1L, Globulin 3.5, Albumin/Globulin Ratio 0.9L, Triglycerides Level 159H, Cholesterol Level 165, LDL Cholesterol 102H, HDL Cholesterol 42, Cholesterol/HDL Ratio 3.9, Thyroid Stimulating Hormone (TSH) 4.141H Height (Feet): 5 Height (Inches): 4.00 Weight (Pounds): 266 General Appearance: no apparent distress EENT: PERRL/EOMI Neck: supple Cardiovascular: normal rate Respiratory/Chest: decreased breath sounds Abdomen: normal bowel sounds, non tender, soft Extremities: non-tender Marcelino Larios MD Sep 07, 2019 12:35
--- NOTE | 2019-09-07 12:44 | General Progress Note ---
Assessment/Plan Problem List: (1) GERD (gastroesophageal reflux disease) (2) Abdominal pain (3) Diabetes ICD Codes: E11.9 - Type 2 diabetes mellitus without complications SNOMED: 86797737 (4) Alcohol abuse ICD Codes: F10.10 - Alcohol abuse, uncomplicated SNOMED: 09534336, 77364482 (5) Intractable vomiting ICD Codes: R11.10 - Vomiting, unspecified SNOMED: 859094154 Status: stable Assessment/Plan: po protonix DC today Subjective Allergies: Coded Allergies: No Known Allergies (Verified , 10/29/17) Subjective feels ok Objective Last 24 Hour Vital Signs Date Time Temp Pulse Resp B/P (MAP) Pulse Ox O2 Delivery O2 Flow Rate FiO2 09/07/19 08:00 97.3 51 16 144/80 (101) 95 09/07/19 04:00 97.5 61 18 140/90 (107) 97 09/07/19 00:00 98.2 60 18 133/84 (100) 95 09/06/19 21:01 Room Air 09/06/19 20:00 98.2 63 20 140/80 (100) 96 09/06/19 16:00 98.1 64 19 141/83 (102) 95 Intake and Output 09/06/19 09/07/19 19:00 07:00 Intake Total 1505 ml 970 ml Output Total 700 ml 700 ml Balance 805 ml 270 ml Intake Oral 1080 ml 420 ml IV Total 425 ml 550 ml Output Urine Total 700 ml 700 ml Laboratory Tests 09/07/19 06:35: White Blood Count 4.9, Red Blood Count 4.75, Hemoglobin 14.4, Hematocrit 45.2, Mean Corpuscular Volume 95, Mean Corpuscular Hemoglobin 30.4, Mean Corpuscular Hemoglobin Concent 31.9L, Red Cell Distribution Width 12.9, Platelet Count 135L , Mean Platelet Volume 7.3, Neutrophils (%) (Auto) 52.6, Lymphocytes (%) (Auto) 36.4, Monocytes (%) (Auto) 6.4, Eosinophils (%) (Auto) 2.9, Basophils (%) (Auto ) 1.6, Sodium Level 138, Potassium Level 3.3L, Chloride Level 103, Carbon Dioxide Level 26, Anion Gap 9, Blood Urea Nitrogen 9, Creatinine 0.8, Estimat Glomerular Filtration Rate > 60, Glucose Level 139H, Hemoglobin A1c 9.8H, Uric Acid 2.3L, Calcium Level 8.1L, Phosphorus Level 3.1, Magnesium Level 2.0, Total Bilirubin 0.6, Gamma Glutamyl Transpeptidase 312H, Aspartate Amino Transf (AST/ SGOT) 79H, Alanine Aminotransferase (ALT/SGPT) 101H, Alkaline Phosphatase 95, C- Reactive Protein, Quantitative 0.9, Pro-B-Type Natriuretic Peptide 14, Total Protein 6.6, Albumin 3.1L, Globulin 3.5, Albumin/Globulin Ratio 0.9L, Triglycerides Level 159H, Cholesterol Level 165, LDL Cholesterol 102H, HDL Cholesterol 42, Cholesterol/HDL Ratio 3.9, Thyroid Stimulating Hormone (TSH) 4.141H Height (Feet): 5 Height (Inches): 4.00 Weight (Pounds): 266 Dangelo Umana MD Sep 07, 2019 12:44
[2019-09-07] MEDS ORDERED: Metoclopramide 10mg/2ml Inj IVP PRN (12:45)
[2019-09-07 16:00] VITALS: BP 134/81
--- NOTE | 2019-09-07 18:15 | NUR ---
DISCHARGE NOTE: Pt is discharged home in stable condition by private car (spouse). IV line removed, no infection or inflammation noted. Pt was instructed on med.regimen, activity, diet. Pt will follow up with PCP or . belongings checked. Addendum: 09/07/19 at 1817 by DANDRE FREEMAN RN Pt will follow up with or PCP.
[2019-09-08] MEDS ORDERED: Thiamine 100mg tab ORAL SCH (09:00)
--- NOTE | 2019-09-08 13:47 | Discharge Summary ---
Discharge Summary Discharge Summary _ DATE OF ADMISSION: 09/04/2011 DATE OF DISCHARGE: 09/07/2019 DISCHARGED BY: Dr Dangelo Umana REASON FOR ADMISSION: 54 years old male with history of alcohol abuse, with past medical history of diabetes mellitus, anxiety, alcohol abuse, started drinking about 8 days ago and then stopped 2 days ago. However he developed vomiting and epigastric pain and subsequently came to emergency room for further evaluation. Patient reported similar episodes in the past. Laboratory work-up revealed WBC 10.9, hemoglobin 16.2 , hematocrit 51.2 , platelet count 193. BUN 16, creatinine 1.4. Glucose 195. Lipase 174. Electrolytes stable . Urinalysis was unremarkable . CT of the abdomen and pelvis revealed no definite acute abnormality. Mildly distended gallbladder , but no stones or wall thickening. Fatty liver. Mild prostatomegaly. Colonic diverticulosis without evidence of diverticulitis. Patient subsequently admitted for further management. CONSULTANTS: ID specialist Dr. Alexx Umana GI specialist Dr. Larios rail equipment operator/oncologist HOSPITAL COURSE: Patient admitted to medical surgical floor. Patient started on IV fluids and IV Protonix. Patient initially was kept on clear liquid diet. Patient undergone abdominal ultrasound , which revealed diffusely increased echogenicity of the liver , consistent with diffuse hepatocellular disease, most likely fatty changes. Also demonstrated on recent CT scan. No evidence of dilated bile ducts or gallstones. CT of the chest revealed scattered sub-5 mm nodules in the right upper lobe. Likely postinflammatory , given evidence of old granulomatous nodule disease as well as the evidence on the prior CT of the abdomen and pelvis in 2016 of nodular inflammation in the right upper lobe. No acute process otherwise. Fatty liver. Chest x-ray demonstrated no acute process. Diet was slowly advanced as tolerated as per GI recommendation. Antiemetic were on board as needed. PPI continued. Thiamine , folate and multivitamin were added. Patient was counseled on abstinence from alcohol. LFT and lipase were closely monitored. GI specialist recommended tighter blood sugar control. Patient demonstrated episode of fever. ID specialist recommended to keep patient off antibiotic. No evidence of infection. Fever resolved. Renal parameters and electrolytes were closely monitored, nephrotoxic's were avoided. BUN remained stable. Creatinine from 1.4 down to 0.8. Potassium repleted. Blood sugar was managed with a sliding scale of insulin , hemoglobin A1c 9.8. Diabetic diet and diabetic teaching provided. Supportive care provided. Patient clinically stabilized and was ready for discharge home. FINAL DIAGNOSES: Alcohol abuse Probably gastritis Intractable vomiting-resolved Diabetes mellitus with hyperglycemia Diverticulosis Fever -resolved Alcoholic fatty liver GERD DISCHARGE MEDICATIONS: See Medication Reconciliation list. DISCHARGE INSTRUCTIONS: Patient was discharged home. Follow-up with a primary care provider in 1 week. Patient was counseled on abstinence from alcohol. I have been assigned to dictate discharge summary for this account. I was not involved in the patient's management. Camila Troncoso NP Sep 08, 2019 13:47
--- NOTE | 2019-09-11 10:49 | NUR ---
CASE MANAGEMENT:INITIAL REVIEW 09/04/19 54 YR OLD MALE FROM HOME CC;ABDOMINAL PAIN SI;UNCONTROLLED PAIN AND VOMITING 98.2 115 16 186/107 95% ON RA WBC 10.9 CR 1.4 BG 195 ALK PHOS 187 UA+ RBC,MUCUS,BLOOD,KETONES,GLUCOSE,PROTEIN ABD CT ~ NO ACUTE ABNORMALITY ABD US ~ Liver demonstrates diffusely increased echogenicity, consistent with diffuse hepatocellular disease IS;IVF NS ZOFRAN IV MORPHINE IV MYLANTA PO PEPCID IV NORCO PO ADMITTED TO MED SURG MED SURG STATUS DCP;PATIENT IS FROM [facility]
== END 2019-09-07 18:00 | disposition home or self-care (01) | DRG 241 ==
LOC: EDSEX 07:10 → EMR 07:44 → 4E 12:09 → EDBEDREQ 12:44 → 4E 13:30
DX: K29.70 Gastritis, unspecified, without bleeding (principal); F10.10 Alcohol abuse, uncomplicated; E11.22 Type 2 diabetes mellitus with diabetic chronic kidney disease; E66.01 Morbid (severe) obesity due to excess calories; Z68.42 Body mass index [BMI] 45.0-49.9, adult; R11.2 Nausea with vomiting, unspecified; E11.65 Type 2 diabetes mellitus with hyperglycemia; K57.90 Diverticulosis of intestine, part unspecified, without perforation or abscess without bleeding; R50.9 Fever, unspecified; K70.0 Alcoholic fatty liver
CPT/HCPCS: 36415; 71045; 71250; 74177; 76700; 80053; 80061; 81003; 82140; 82962; 82977; 83036; 83690; 83735; 83880; 84100; 84443; 84484; 84550; 85025; 85610; 85730; 86140; 93005; 96361; 96374; 96375; 99285; G0480; J2405; J7030

== ENCOUNTER 2020-03-04 22:40 | Emergency (ER) | payer MEDICAID ==
[~2020-03-04] VITALS: Ht 157.5 cm; Wt 124.7 kg
[2020-03-04 22:52] VITALS: BP 149/96
--- NOTE | 2020-03-04 22:54 | NUR ---
Nurse Note: PT arrived c/o RT chest pain to epigastric pain since few days. Pt denies shortness of breath, denies exercise; pt stated he was at rest. hx anxiety. EKG being taken by tech. TILLMAN at pt side.
--- NOTE | 2020-03-04 22:56 | Emergency Room Report ---
History of Present Illness General Chief Complaint: Chest Pain Source: Patient Present Illness HPI This is a 54-year-old male with a history of alcohol abuse but has not had a drink for 4 months. He presents with chief plaint of chest pain. Onset for last 3 days. Pain is across his chest. He felt soreness. Worse at night when he sleeping. During the day when he is working he has no pain. He works in [employer]. No exertional component. No fever chills but no nausea no vomiting. Went to an ER 3 days ago was given medicine. He said is not helping. Does not know the name of the medicine. Allergies: Coded Allergies: No Known Allergies (Verified , 10/29/17) COVID-19 Screening Contact w/high risk pt: No Recent Travel to affected area: No Experienced COVID-19 symptoms?: No COVID-19 Testing performed DIETITIAN THERAPEUTIC: No Patient History Past Medical History: see triage record, old chart reviewed Past Surgical History: none Pertinent Family History: none Social History: Denies: smoking Immunizations: other Reviewed Nursing Documentation: PMH: Agreed; PSxH: Agreed Nursing Documentation-PMH Hx Diabetes: Yes Hx Gastrointestinal Problems: Yes - gastritis Hx Neurological Problems: No Review of Systems Eye: Denies: eye pain, blurred vision ENT: Denies: ear pain, nose congestion, throat swelling Respiratory: Denies: cough, shortness of breath Cardiovascular: Reports: chest pain; Denies: palpitations Gastrointestinal: Denies: abdominal pain, diarrhea, nausea, vomiting Musculoskeletal: Denies: back pain, joint pain Skin: Denies: rash Neurological: Denies: headache, numbness Endocrine: Denies: increased thirst, increased urine Hematologic/Lymphatic: Denies: easy bruising All Other Systems: negative except mentioned in HPI Physical Exam Vital Signs Date Time Temp Pulse Resp B/P (MAP) Pulse Ox O2 Delivery O2 Flow Rate FiO2 03/04/20 22:44 98.8 83 16 149/96 (113) 97 Room Air Vitals with high blood pressure Sp02 EP Interpretation: reviewed, normal General Appearance: well appearing, no apparent distress, alert Head: normocephalic, atraumatic Eyes: bilateral eye PERRL, bilateral eye EOMI ENT: hearing grossly normal, normal pharynx Neck: full range of motion, supple, no meningismus Respiratory: chest non-tender, lungs clear, normal breath sounds Cardiovascular #1: regular rate, rhythm, no murmur Gastrointestinal: normal bowel sounds, non tender, no mass, no organomegaly, no bruit, non-distended Musculoskeletal: back normal, normal range of motion, gait/station normal Psychiatric: mood/affect normal Medical Decision Making Diagnostic Impression: Primary Impression: Chest pain Qualified Codes: R07.9 - Chest pain, unspecified ER Course This patient presents with atypical chest pain. Onset for 3 days now. No ev idence of ACS, PE, dissection to name a few. EKG is unchanged from prior. Troponin negative. Will discharge home. EKG Diagnostic Results Troponin ordered: Yes Rate: normal Rhythm: NSR ST Segments: other - NSST changes Last Vital Signs Date Time Temp Pulse Resp B/P (MAP) Pulse Ox O2 Delivery O2 Flow Rate FiO2 03/04/20 22:44 98.8 83 16 149/96 (113) 97 Room Air Status: improved Disposition: HOME, SELF-CARE Condition: Stable Scripts Ibuprofen* (MOTRIN*) 600 Mg Tablet 600 MG ORAL Q6H PRN for For Pain, #30 TAB 0 Refills Prov: Enrique Talamantes MD 03/04/20 Patient Instructions: Nonspecific Chest Pain Additional Instructions: Follow-up with your doctor in 7 days. Return if symptoms worsen. Enrique Talamantes MD Mar 04, 2020 22:56
--- NOTE | 2020-03-04 23:07 | NUR ---
Nurse Note: Blood collected and motrin administered. Pt tolerated well.
[2020-03-04] MEDS ORDERED: IBUPROFEN600 M1 ORAL (23:53)
[2020-03-05 00:05] VITALS: BP 135/88
== END 2020-03-05 00:05 | disposition home or self-care (01) ==
LOC: EMR 22:56
DX: R07.9 Chest pain, unspecified (principal); E11.9 Type 2 diabetes mellitus without complications; F10.21 Alcohol dependence, in remission
CPT/HCPCS: 84484; 93005; Z7502; 99283

== ENCOUNTER 2020-04-12 00:53 | Emergency (ER) | payer MEDICAID ==
[~2020-04-12] VITALS: Ht 157.5 cm; Wt 118.8 kg
[~2020-04-12 00:53] MED LIST changes: +GLUCOPHAGE500 MG ORAL; +IBUPROFEN600 M1 ORAL; +LIBRIUM25 MG ORAL; +PRILOSEC OTC20 MG ORAL; +RANITIDINE HCL150 MG ORAL; +ZITHROMAX250 MG ORAL; +ZYRTEC10 MG ORAL
[2020-04-12 00:58] VITALS: BP 158/95
--- NOTE | 2020-04-12 01:22 | Emergency Room Report ---
History of Present Illness General Chief Complaint: Chest Pain Source: Patient, Medical Record Present Illness HPI Is a 54-year-old male who has a history of alcohol abuse. When I saw him in February he said he has been sober for 4 months. Now start drinking again. He presents with treatment of chest pain. Pain is epigastric area to his neck area. Onset for 24 hours now. No nausea no vomiting. Pain is burning and sharp in nature. No radiation. No exertional component. No diaphoresis. Similar symptom in the past. Pain is 7 out of 10. Nothing made it better. Nothing made it worse. No suicidal thoughts or homicidal thought. Allergies: Coded Allergies: No Known Allergies (Verified , 10/29/17) COVID-19 Screening Contact w/high risk pt: No Recent Travel to affected area: No Experienced COVID-19 symptoms?: No COVID-19 Testing performed HEAD OF DATA: No Patient History Past Medical History: see triage record, old chart reviewed Past Surgical History: other Pertinent Family History: none Social History: Reports: alcohol use Immunizations: other Reviewed Nursing Documentation: PMH: Agreed; PSxH: Agreed Nursing Documentation-PMH Hx Diabetes: Yes Hx Gastrointestinal Problems: Yes - gastritis Hx Neurological Problems: No Review of Systems Eye: Denies: eye pain, blurred vision ENT: Denies: ear pain, nose congestion, throat swelling Respiratory: Denies: cough, shortness of breath Cardiovascular: Reports: chest pain; Denies: palpitations Gastrointestinal: Denies: abdominal pain, diarrhea, nausea, vomiting Musculoskeletal: Denies: back pain, joint pain Skin: Denies: rash Neurological: Denies: headache, numbness Endocrine: Denies: increased thirst, increased urine Hematologic/Lymphatic: Denies: easy bruising All Other Systems: negative except mentioned in HPI Physical Exam Vital Signs Date Time Temp Pulse Resp B/P (MAP) Pulse Ox O2 Delivery O2 Flow Rate FiO2 04/12/20 00:58 98.6 100 158/95 (116) Vitals with high blood pressure Sp02 EP Interpretation: reviewed, normal General Appearance: well appearing, no apparent distress, alert Head: normocephalic, atraumatic Eyes: bilateral eye PERRL, bilateral eye EOMI ENT: hearing grossly normal, normal pharynx Neck: full range of motion, supple, no meningismus Respiratory: chest non-tender, lungs clear, normal breath sounds Cardiovascular #1: regular rate, rhythm, no murmur Gastrointestinal: normal bowel sounds, non tender, no mass, no organomegaly, no bruit, non-distended Musculoskeletal: back normal, normal range of motion, gait/station normal Psychiatric: mood/affect normal Medical Decision Making Diagnostic Impression: Primary Impression: Chest pain Qualified Codes: R07.9 - Chest pain, unspecified Additional Impression: Alcohol abuse ER Course Patient presents with chest pain. Most likely GI in issue with his alcohol abuse. EKG is unremarkable. Troponin negative. No evidence of ACS, PE, dissection to name a few. Will discharge home. EKG Diagnostic Results Troponin ordered: Yes Rate: normal Rhythm: NSR ST Segments: no acute changes Rhythm Strip Diag. Results EP Interpretation: yes Rate: 96 Rhythm: NSR, no PVC's, no ectopy Last Vital Signs Date Time Temp Pulse Resp B/P (MAP) Pulse Ox O2 Delivery O2 Flow Rate FiO2 04/12/20 00:58 98.6 100 158/95 (116) Status: improved Disposition: HOME, SELF-CARE Condition: Stable Scripts Omeprazole Magnesium (PRILOSEC OTC) 20 Mg Tablet. 20 MG ORAL DAILY, #30 TAB Prov: Enrique Talamantes MD 04/12/20 Patient Instructions: Nonspecific Chest Pain, Heartburn Additional Instructions: Stop drinking alcohol. Go to rehab. Follow-up with your doctor in 7 days. Return if worse. Enrique Talamantes MD Apr 12, 2020 01:22
--- NOTE | 2020-04-12 01:22 | NUR ---
ED Nurse Note: PT. AAOX4. AMBULATORY. PT WALKED IN TO ER FROM HOME. PER PT., HE HAS CP AND ABD PAIN X 2 DAYS NOW WITH EPISODES OF VOMITING TODAY. PT. DENIES DIARRHEA. PT. RATED 9/10 PAIN. NO S/S OF ACUTE RESP DISTRESS NOTED AT THIS TIME
[2020-04-12 01:26] LABS: BASOPHILS % (AUTO) 1.3 % (0.0-2.0); EOSINOPHILS % (AUTO) 0.6 % (0.0-3.0); HEMATOCRIT 49.2 % (42.0-52.0); HEMOGLOBIN 16.2 G/DL (14.2-18.0); LYMPHOCYTES % (AUTO) 33.9 % (20.0-45.0); MEAN CORPUSCULAR VOLUME 91 FL (80-99); MONOCYTES % (AUTO) 8.1 % (1.0-10.0); NEUTROPHILS % (AUTO) 56.2 % (45.0-75.0); PLATELET COUNT 199 K/UL (150-450); RED BLOOD COUNT 5.43 M/UL (4.70-6.10); WHITE BLOOD COUNT 9.7 K/UL (4.8-10.8)
[2020-04-12] MEDS ORDERED: Pantoprazole Inj IVP ONE (01:30)
[2020-04-12] MEDS ORDERED: Mylanta II UD 30ml ORAL ONE (01:30)
[2020-04-12 01:53] LABS: ANION GAP 13 mmol/L (5-15); BLOOD UREA NITROGEN 12 mg/dL (7-18); CALCIUM 8.8 MG/DL (8.5-10.1); CARBON DIOXIDE 23 MMOL/L (21-32); CHLORIDE 100 MMOL/L (98-107); CREATININE 0.9 MG/DL (0.55-1.30); POTASSIUM 4.1 MMOL/L (3.5-5.1); SODIUM 136 MMOL/L (136-145)
[2020-04-12 01:58] LABS: ALANINE AMINOTRANSFERASE 59 U/L (12-78); ALBUMIN 3.8 G/DL (3.4-5.0); ALBUMIN/GLOBULIN RATIO 0.9 (1.0-2.7); ALKALINE PHOSPHATASE 146 U/L (46-116); ASPARTATE AMINO TRANSFERASE 25 U/L (15-37); BILIRUBIN,TOTAL 0.2 MG/DL (0.2-1.0)
[2020-04-12] MEDS ORDERED: PRILOSEC OTC20 MG ORAL (02:06)
[2020-04-12 02:08] VITALS: BP 140/84
--- NOTE | 2020-04-12 02:09 | NUR ---
ED Nurse Note: Pt cleared by health care Provider for discharge. DC instructions/prescription was given and explained to pt and verbalized understanding of teachings. Instructed to follow up with PCP within 2-6 days. All medical deviecs such as ID band removed. Pt is AAO x4, ambulatory and left with all personal belongings.
[2020-04-12] MEDS ORDERED: TRAMADOL HCL50 MG ORAL (05:25)
== END 2020-04-12 02:09 | disposition home or self-care (01) ==
LOC: EMR 01:26
DX: R07.9 Chest pain, unspecified (principal); F10.10 Alcohol abuse, uncomplicated; E11.9 Type 2 diabetes mellitus without complications
CPT/HCPCS: 36415; 80053; 84484; 85025; 93005; 96374; S0164; Z7502; 99284

== ENCOUNTER 2020-04-12 04:20 | Emergency (ER) | payer MEDICAID ==
[~2020-04-12] VITALS: Ht 167.6 cm; Wt 70.8 kg
--- NOTE | 2020-04-12 04:49 | Emergency Room Report ---
History of Present Illness General Chief Complaint: Abdominal Pain Source: Patient, Medical Record Present Illness HPI Is a 54-year-old male who is an alcoholic. He presents with chief complaint of epigastric and abdominal pain. He was just here for this similar symptom but with chest pain. Work-up was negative. Labs unremarkable. LFTs unremarkable. He left here and came back because he is having epigastric pain. No nausea no vomiting. Radiating up his throat. No fever chills. Allergies: Coded Allergies: No Known Allergies (Verified , 10/29/17) COVID-19 Screening Contact w/high risk pt: No Recent Travel to affected area: No Experienced COVID-19 symptoms?: No Patient History Past Medical History: see triage record, old chart reviewed Past Surgical History: other Pertinent Family History: none Social History: Reports: alcohol use Immunizations: other Reviewed Nursing Documentation: PMH: Agreed; PSxH: Agreed Nursing Documentation-PMH Hx Diabetes: Yes Hx Gastrointestinal Problems: Yes - gastritis Hx Neurological Problems: No Review of Systems Eye: Denies: eye pain, blurred vision ENT: Denies: ear pain, nose congestion, throat swelling Respiratory: Denies: cough, shortness of breath Cardiovascular: Denies: chest pain, palpitations Gastrointestinal: Reports: abdominal pain; Denies: diarrhea, nausea, vomiting Musculoskeletal: Denies: back pain, joint pain Skin: Denies: rash Neurological: Denies: headache, numbness Endocrine: Denies: increased thirst, increased urine Hematologic/Lymphatic: Denies: easy bruising All Other Systems: negative except mentioned in HPI Physical Exam Also unremarkable Sp02 EP Interpretation: reviewed, normal General Appearance: well appearing, no apparent distress, alert Head: normocephalic, atraumatic Eyes: bilateral eye PERRL, bilateral eye EOMI ENT: hearing grossly normal, normal pharynx Neck: full range of motion, supple, no meningismus Respiratory: chest non-tender, lungs clear, normal breath sounds Cardiovascular #1: regular rate, rhythm, no murmur Gastrointestinal: normal bowel sounds, no mass, no organomegaly, no bruit, non- distended, tenderness - Epigastric Musculoskeletal: back normal, normal range of motion, gait/station normal Psychiatric: mood/affect normal Medical Decision Making Diagnostic Impression: Primary Impression: Acute alcoholic gastritis Qualified Codes: K29.20 - Alcoholic gastritis without bleeding ER Course This patient presents epigastric abdominal pain. This is probably alcoholic gastritis secondary to his alcohol abuse. Labs unremarkable. Lipase normal. Will discharge home. Status: improved Disposition: HOME, SELF-CARE Condition: Stable Scripts Tramadol Hcl* (ULTRAM*) 50 Mg Tablet 50 MG ORAL Q6H PRN for For Pain, #20 TAB 0 Refills Prov: Enrique Talamantes MD 04/12/20 Additional Instructions: Stop drinking alcohol. Go to rehab. Follow-up with your doctor in 7 days. Return if worse. Enrique Talamantes MD Apr 12, 2020 04:49
[2020-04-12 04:53] VITALS: BP 148/78
--- NOTE | 2020-04-12 04:55 | NUR ---
Nurse Note: Pt arrived c/o generalized abd pain for past few hrs. Pt stated the pain is "really bad" and could not get his prescription filled. Pt was discharged at 0130 for similiar reason. Pt appears with a bright red face, slow to respond and follow instructions. Pt denies n/v/d, chest pain, shortness of breath. Pt blood drawn, meds administered. All safety measures met.
[2020-04-12] MEDS ORDERED: Lidocaine 2% Visc 15ml soln ORAL ONE (05:00)
[2020-04-12] MEDS ORDERED: Mylanta II UD 30ml ORAL ONE (05:00)
[2020-04-12] MEDS ORDERED: Morphine Sulfate 2mg/ml Inj(IV/IM USE ONLY) IM ONE (05:00)
[2020-04-12] MEDS ORDERED: TRAMADOL HCL50 MG ORAL (05:25)
[2020-04-12 05:30] VITALS: BP 140/80
--- NOTE | 2020-04-12 05:30 | NUR ---
ED Nurse Note: Pt cleared by health care Provider for discharge. DC instructions/prescription was given and explained to pt and verbalized understanding of teachings. Instructed pt to follow up with PCP within 2-7days. All medical deviecs such as ID band removed. Pt is AAO x4, ambulatory and left with all personal belongings.
== END 2020-04-12 05:30 | disposition home or self-care (01) ==
LOC: EMR 04:55
DX: K29.20 Alcoholic gastritis without bleeding (principal); E11.9 Type 2 diabetes mellitus without complications
CPT/HCPCS: 36415; 83690; 96372; J2270; Z7502; 99283

== ENCOUNTER 2020-05-25 17:12 | Emergency (ER) | payer SELFPAY ==
[~2020-05-25] VITALS: Ht 167.6 cm; Wt 90.7 kg
[~2020-05-25 17:12] MED LIST changes: +TRAMADOL HCL50 MG ORAL
[2020-05-25] MEDS ORDERED: Mylanta II UD 30ml ORAL ONE (17:45)
[2020-05-25] MEDS ORDERED: Lidocaine 2% Visc 15ml soln ORAL ONE (17:45)
[2020-05-25 17:48] VITALS: BP 166/100
--- NOTE | 2020-05-25 18:00 | NUR ---
pt arrives tO ER POV with complaints of upper abdominal pain.pt has history of alchohlism with gastritis.
--- NOTE | 2020-05-25 18:16 | Emergency Room Report ---
History of Present Illness General Chief Complaint: Abdominal Pain Source: Patient Present Illness HPI 55 YO Male presents to the ED c/o abdominal burning pain 8/10 in severity in the epigastric region. Reports nausea, denies vomiting, constipation or diarrhea. Reports "drinking too much alcohol". He states he has been drinking liquor x 4 days. Pt. reports hx of stomach issues after drinking. He denies blood in the stool or dark tarry stools. He denies fevers or chills. He denies trauma or fall. He denies hx of w/d seizures. He denies CP, Palpitations, SOB or ROBLES. Pt. denies dizziness. He denies back pain. Hx of DM and vertigo. He denies dysuria, hematuria, or urinary frequency. He denies polydipsia. Pt. denies taking any medications today. He denies being rx'd any medications. Allergies: Coded Allergies: No Known Allergies (Verified , 10/29/17) COVID-19 Screening Contact w/high risk pt: No Recent Travel to affected area: No Experienced COVID-19 symptoms?: No COVID-19 Testing performed CONTRACTS SPECIALIST: No Patient History Past Medical History: see triage record Past Surgical History: none Pertinent Family History: none Reviewed Nursing Documentation: PMH: Agreed; PSxH: Agreed Nursing Documentation-PMH Past Medical History: No History, Except For Hx Diabetes: Yes Hx Gastrointestinal Problems: Yes - gastritis History Of Psychiatric Problem: Yes - etoh abuse Hx Neurological Problems: No Review of Systems All Other Systems: negative except mentioned in HPI Physical Exam Vital Signs Date Time Temp Pulse Resp B/P (MAP) Pulse Ox O2 Delivery O2 Flow Rate FiO2 05/25/20 17:36 99.1 103 20 166/100 (122) 98 Room Air Sp02 EP Interpretation: reviewed, normal General Appearance: no apparent distress, alert, GCS 15, non-toxic Head: normocephalic, atraumatic Eyes: bilateral eye normal inspection, bilateral eye PERRL ENT: hearing grossly normal, normal voice Neck: full range of motion Respiratory: lungs clear, normal breath sounds, speaking full sentences Cardiovascular #1: regular rate, rhythm Gastrointestinal: normal bowel sounds, non tender, soft, no peritonitis, non- distended, no guarding Genitourinary: normal inspection, no CVA tenderness Musculoskeletal: back normal, normal range of motion, gait/station normal, non- tender Neurologic: alert, motor strength/tone normal, oriented x3, sensory intact, responsive, speech normal Psychiatric: judgement/insight normal Skin: no rash, normal color, other - no bruises, lacerations or abrasions. Medical Decision Making PA Attestation Dr. Davis is my supervising Physician whom patient management has been discussed with. Diagnostic Impression: Primary Impression: Acute alcoholic intoxication Qualified Codes: F10.920 - Alcohol use, unspecified with intoxication, uncomplicated Additional Impression: Gastritis Qualified Codes: K29.20 - Alcoholic gastritis without bleeding ER Course 55 YO Male presents to the ED c/o abdominal burning pain 8/10 in severity in the epigastric region. Reports nausea, denies vomiting, constipation or diarrhea. Reports "drinking too much alcohol". He states he has been drinking liquor x 4 days. Pt. reports hx of stomach issues after drinking. He denies blood in the stool or dark tarry stools. He denies fevers or chills. He denies trauma or fall. He denies hx of w/d seizures. He denies CP, Palpitations, SOB or ROBLES. Pt. denies dizziness. He denies back pain. Hx of DM and vertigo. He denies dysuria, hematuria, or urinary frequency. He denies polydipsia. Pt. denies taking any medications today. He denies being rx'd any medications. Ddx considered but are not limited to Diverticulitis, acute appendicitis, GI bleed, diarrhea,UC, PUD, GE, pancreatitis, gallstones just to name a few. Vital signs: are WNL, pt. is afebrile. H&PE are most consistent with alcoholic gastritis-patient is nontoxic in appearance and in no acute distress. Physical exam does not suggest acute abdomen at this time. ORDERS: -CBC, CMP, Lipase: WNL -Ekg: unremarkable other than prolonged QT. no acute ST changes, regular rhythm. -ETOH: 246 ED INTERVENTIONS: - -Zofran 4mg. - Mylanta -Lidocaine -Toradol 15mg IV -NS 500cc IV PT. has no active vomiting. After above interventions this patient successfully completed oral fluid challenge without nausea or vomiting. DISCHARGE: At this time pt. is stable for d/c to home. Will provide printed patient care instructions, and any necessary prescriptions. Care plan and follow up instructions have been discussed with the patient prior to discharge. Labs Test 05/25/20 19:08 White Blood Count 12.2 K/UL (4.8-10.8) Red Blood Count 6.00 M/UL (4.70-6.10) Hemoglobin 17.8 G/DL (14.2-18.0) Hematocrit 55.7 % (42.0-52.0) Mean Corpuscular Volume 93 FL (80-99) Mean Corpuscular Hemoglobin 29.7 PG (27.0-31.0) Mean Corpuscular Hemoglobin Concent 32.0 G/DL (32.0-36.0) Red Cell Distribution Width 13.3 % (11.6-14.8) Platelet Count 188 K/UL (150-450) Mean Platelet Volume 9.4 FL (6.5-10.1) Neutrophils (%) (Auto) 69.6 % (45.0-75.0) Lymphocytes (%) (Auto) 23.8 % (20.0-45.0) Monocytes (%) (Auto) 5.3 % (1.0-10.0) Eosinophils (%) (Auto) 0.3 % (0.0-3.0) Basophils (%) (Auto) 1.0 % (0.0-2.0) Sodium Level 137 MMOL/L (136-145) Potassium Level 4.1 MMOL/L (3.5-5.1) Chloride Level 98 MMOL/L (98-107) Carbon Dioxide Level 21 MMOL/L (21-32) Anion Gap 18 mmol/L (5-15) Blood Urea Nitrogen 14 mg/dL (7-18) Creatinine 0.9 MG/DL (0.55-1.30) Estimat Glomerular Filtration Rate > 60 mL/min (>60) Glucose Level 189 MG/DL (74-106) Calcium Level 8.7 MG/DL (8.5-10.1) Total Bilirubin 0.2 MG/DL (0.2-1.0) Aspartate Amino Transf (AST/SGOT) 26 U/L (15-37) Alanine Aminotransferase (ALT/SGPT) 51 U/L (12-78) Alkaline Phosphatase 159 U/L (46-116) Total Protein 7.9 G/DL (6.4-8.2) Albumin 4.0 G/DL (3.4-5.0) Globulin 3.9 g/dL Albumin/Globulin Ratio 1.0 (1.0-2.7) Lipase 152 U/L (73-393) Serum Alcohol 246 mg/dL EKG Diagnostic Results Troponin ordered: No EKG Time: 17:57 Rate: normal - 89 Bpm Rhythm: NSR ST Segments: no acute changes Other Impression Prolonged Qtc 462. ASA given to the pt in ED: No PA Scribe Text This Interpretation was scribed by ARMAAN Henry. Last Vital Signs Date Time Temp Pulse Resp B/P (MAP) Pulse Ox O2 Delivery O2 Flow Rate FiO2 05/25/20 17:48 98.2 103 18 166/100 98 Room Air Status: improved Disposition: HOME, SELF-CARE Condition: Stable Scripts Multivitamin (Multivitamin) 1 Each Tablet 1 EACH PO DAILY for 30 Days, #30 TAB Prov: Aminah Henry 05/25/20 Mag Hydrox/Aluminum Hyd/Simeth (Mylanta Maximum Strength Liq) 355 Ml Oral.susp 355 ML PO BID for 5 Days, #355 ML Prov: Aminah Henry 05/25/20 Famotidine* (Pepcid 20mg tablet*) 20 Mg Tablet 20 MG ORAL TWICE A DAY for Gerd for 10 Days, #20 TAB 0 Refills Prov: Aminah Henry 05/25/20 Referrals: NOT CHOSEN IPA/MD,REFERRING (PCP) Karine Lockwood Comp. [facility] Patient Instructions: Alcohol Intoxication, [id number], Gastritis, Adult, [id number] Additional Instructions: STOP DRINKING ALCOHOL Take medications as directed. Follow up with a Primary Care Provider in 3-5 days, even if your symptoms have resolved. --Please review list of primary care clinics, if you do not already have a primary care provider Return sooner to ED if new symptoms occur, or current symptoms become worse. - Please note that this Emergency Department Report was dictated using [employer] operator helper technology software, occasionally this can lead to erroneous entry secondary to interpretation by the dictation equipment. Aminah Henry May 25, 2020 18:16
--- NOTE | 2020-05-25 18:43 | NUR ---
pt resting comfortably. pt states minor improvement
[2020-05-25 19:25] LABS: EOSINOPHILS % (AUTO) 0.3 % (0.0-3.0); HEMATOCRIT 55.7 % (42.0-52.0); HEMOGLOBIN 17.8 G/DL (14.2-18.0); LYMPHOCYTES % (AUTO) 23.8 % (20.0-45.0); MEAN CORPUSCULAR VOLUME 93 FL (80-99); MONOCYTES % (AUTO) 5.3 % (1.0-10.0); NEUTROPHILS % (AUTO) 69.6 % (45.0-75.0); PLATELET COUNT 188 K/UL (150-450); RED CELL DISTRIBUTION WIDTH 13.3 % (11.6-14.8); WHITE BLOOD COUNT 12.2 K/UL (4.8-10.8)
[2020-05-25 19:28] LABS: ANION GAP 18 mmol/L (5-15); BLOOD UREA NITROGEN 14 mg/dL (7-18); CALCIUM 8.7 MG/DL (8.5-10.1); CARBON DIOXIDE 21 MMOL/L (21-32); CHLORIDE 98 MMOL/L (98-107); CREATININE 0.9 MG/DL (0.55-1.30); POTASSIUM 4.1 MMOL/L (3.5-5.1); SODIUM 137 MMOL/L (136-145)
[2020-05-25 19:32] LABS: ALANINE AMINOTRANSFERASE 51 U/L (12-78); ALKALINE PHOSPHATASE 159 U/L (46-116); ASPARTATE AMINO TRANSFERASE 26 U/L (15-37); BILIRUBIN,TOTAL 0.2 MG/DL (0.2-1.0)
[2020-05-25] MEDS ORDERED: Ketorolac 30mg Inj IV ONE (20:00)
[2020-05-25] MEDS ORDERED: MULTIVITAMIN1 EACH PO (20:05)
[2020-05-25] MEDS ORDERED: FAMOTIDINE20 MG ORAL (20:05)
[2020-05-25] MEDS ORDERED: MYLANTA MAXIMU355 ML PO (20:05)
[2020-05-25 21:03] VITALS: BP 129/88
== END 2020-05-25 21:10 | disposition home or self-care (01) ==
LOC: EMR 17:37
DX: F10.920 Alcohol use, unspecified with intoxication, uncomplicated (principal); K29.20 Alcoholic gastritis without bleeding; E11.9 Type 2 diabetes mellitus without complications; Y90.8 Blood alcohol level of 240 mg/100 ml or more; Z79.84 Long term (current) use of oral hypoglycemic drugs
CPT/HCPCS: 36415; 80053; 83690; 85025; 93005; 96374; 99284; G0480; J1885; J7040

== ENCOUNTER 2020-05-26 | Emergency (ER) | payer SELFPAY ==
[~2020-05-26] MED LIST changes: +MULTIVITAMIN1 EACH PO; +MYLANTA MAXIMU355 ML PO
--- NOTE | 2020-05-26 00:12 | Emergency Room Report ---
History of Present Illness General Chief Complaint: To Be Triaged Present Illness HPI Patient left prior to triage. Allergies: Coded Allergies: No Known Allergies (Verified , 10/29/17) COVID-19 Screening Contact w/high risk pt: No Recent Travel to affected area: No Experienced COVID-19 symptoms?: No Nursing Documentation-PMH Hx Diabetes: Yes Hx Gastrointestinal Problems: Yes - gastritis Hx Neurological Problems: No Cheli Sharma M.D. May 26, 2020 00:12
--- NOTE | 2020-05-26 00:13 | NUR ---
ED Nurse Note: LWBS
== END 2020-05-26 01:00 | disposition home or self-care (01) ==
LOC: EMR 00:05
DX: R10.9 Unspecified abdominal pain (principal); Z53.21 Procedure and treatment not carried out due to patient leaving prior to being seen by health care provider